=== PATIENT | male | born 1970 | race Two or more races ===

== ENCOUNTER 2024-07-11 11:16 | Inpatient (IN) | payer MEDICAID ==
[~2024-07-11] VITALS: Ht 177.8 cm; Wt 88.4 kg
[2024-07-11] MEDS: HEPARIN DRIP-CARDIAC**PHARMACIST-TO-DOSE IV ONE (11:25)
--- NOTE | 2024-07-11 11:25 | ELECTROCARDIOGRAPH REPORT ---
[facility] Test Date: 2024-07-11 Test Time: 11:22:22 Pat Name: ROXI FOSTER Department: EMERGENCY ROOM Room: [place] [address] Gender: M Subassembly Assembler: RENAN : 1970 Requested By: BERNICE STEVENS Order Number: [id number] Reading MD: Dr. Abhijeet Strong Measurements Intervals [place] Rate: 65 P: 68 MN: 151 QRS: 71 QRSD: 89 T: 77 QT: 426 QTc: 443 Interpretive Statements Sinus rhythm Electronically Signed On 07-17-2024 13:45:[address] Abhijeet Strong Please click the below link to view image of tracing.
[2024-07-11] MEDS: HEPARIN DRIP INITAL BOLUS --- DO NOT GIVE/ORDER MC ONE (12:46)
[2024-07-11] MEDS: MESSAGE TO NURSING IV ONE ×2 (12:47→20:55)
[2024-07-11] MEDS: heparin 25,000 UNIT/250ml bag 250 ML IV PRN (12:48)
[2024-07-11 13:08] LABS: BASOPHILS # (AUTO) 0.1 X10'3 (0-0.2); BASOPHILS % (AUTO) 1.2 % (0-1); EOSINOPHILS # (AUTO) 0.5 X10'3 (0-0.9); EOSINOPHILS % (AUTO) 4.3 % (0-6); HEMATOCRIT 42.7 % (42.0-52.0); HEMOGLOBIN 14.7 g/dl (14.0-17.9); LYMPHOCYTES # (AUTO) 1.8 X10'3 (1.1-4.8); MEAN CORPUSCULAR HEMOGLOBIN 29.7 PG (27.0-31.0); MEAN CORPUSCULAR HGB CONC 34.4 g/dL (33.0-36.5); MEAN CORPUSCULAR VOLUME 86.4 FL (78-98); MEAN PLATELET VOLUME 8.8 FL (7.4-10.4); MONOCYTES # (AUTO) 0.5 X10'3 (0-0.9); MONOCYTES % (AUTO) 4.6 % (2-12); NEUTROPHILS # (AUTO) 7.7 X10'3 (1.8-7.7); NEUTROPHILS % (AUTO) 72.9 % (42-75); PLATELET COUNT 248 X10'3 (140-440); RED BLOOD COUNT 4.95 X10'6 (4.70-6.10); RED CELL DISTRIBUTION WIDTH 12.7 % (11.5-14.5); WHITE BLOOD COUNT 10.6 X10'3 (4.5-11.0)
[2024-07-11 13:21] LABS: APTT 31 SECONDS (22-32); PROTHROMBIN TIME 10.4 SECONDS (9.0-12.0)
--- NOTE | 2024-07-11 14:52 | RADIOLOGY REPORT ---
DI CHEST,SINGLE VIEW, HISTORY: CP COMPARISON: None None TECHNICAL DATA: 1 view of the chest was obtained. FINDINGS: Lines and tubes: None Cardiomediastinal silhouette: normal Pulmonary vasculature: normal Lung expansion: normal Lung airspace: normal Lung interstitium: normal Pleura: normal Pneumothorax: no Bones: Unremarkable Other: no IMPRESSION: No acute intrathoracic abnormality.
[2024-07-11 14:54] LABS: ALANINE AMINOTRANSFERASE 24 U/L (12-78); ALBUMIN 3.4 G/DL (3.4-5.0); ALKALINE PHOSPHATASE 115 IU/L (46-116); ANION GAP 10 (8-16); ASPARTATE AMINO TRANSFERASE 44 U/L (10-37); BILIRUBIN,TOTAL 0.5 MG/DL (0.1-1.0); BLOOD UREA NITROGEN 13 MG/DL (7-18); BUN/CREATININE RATIO 14.3 (10.0-20.0); CALCIUM 9.1 MG/DL (8.5-10.1); CHLORIDE 103 MMOL/L (99-107); CREATININE 0.91 MG/DL (0.60-1.10); GLUCOSE 99 MG/DL (70-104); POTASSIUM 4.6 MMOL/L (3.5-5.1); SODIUM 140 MMOL/L (135-145); TOTAL CARBON DIOXIDE 27.1 MMOL/L (24-32); TOTAL PROTEIN 6.9 G/DL (6.4-8.2); eCRCL 98 ML/MIN; eGFR 87 ML/MIN
[2024-07-11 15:02] LABS: PRO BRAIN NATRIURETIC PEPTIDE 545 PG/ML (0-125)
--- NOTE | 2024-07-11 15:35 | Physician Documentation ---
History of Present Illness ~ Chief Complaint: Chest Pain Stated Complaint: NSTEMI Time Seen by MD: 11:43 Mode of Arrival: EMS HPI 54-year-old male reports ER after transferred from [place] secondary to NSTEMI. Patient began to have chest pain yesterday which radiates to the back. Patient states he was concerned but did not report to the ER. Patient states that the pain he is going to continue today reported to the ER where he had elevated troponins with the 1st initial troponin of 0.547 in his 2nd troponin of point 0.793. Patient is placed on a heparin drip and transferred to [facility]. Patient states it is chest pain is controlled he is currently not complaint of any chest pain. Denies diaphoresis. No other complaints at this time Medication Reconciliation Allergies: Coded Allergies: No Known Allergies (Unverified , 07/11/24) Past Medical History Smoking Status: Current every day smoker Physical Exam Vital Signs: Temperature: 97.5, Source: Oral, Heart Rate: 65, Respiratory Rate: 18, BP: 105/78, Pulse Oximetry: 98, Weight: 90.000 Physical Exam General: Well developed, well nourished, no distress. HEENT: Atraumatic, normal conjunctiva, moist mucous membranes. Neck: Full range of motion, supple. Respiratory: Lungs clear, no respiratory distress. Chest: No accessory muscle use, nontender. Cardiovascular: Regular rate and rhythm. Gastrointestinal: Soft, nontender, nondistended. Bowel sounds present. Extremities: Normal range of motion, nontender, normal capillary refill, no deformity. Back: No midline tenderness, no CVA tenderness. Neurologic: Oriented x4. Distal gross motor and sensory intact all four e xtremities. Moves all 4 extremities spontaneously. Psychiatric: Normal mood and affect. Skin: Normal color, warm and dry. No edema, no ecchymosis Progress Results/Orders Results/Orders Orders - GORDON PALOMARES Hs Troponin I W Calculations (07/11/24 16:50) Chest,Single View (07/11/24 14:35) Cta Aorta Disection (07/11/24 15:35) Drug Screen, Urine (07/11/24 16:27) Page Hospitalist (07/11/24 17:03) Fill Out Med Reconciliation (07/11/24 17:03) Completed Orders - GORDON PALOMARES Cardiac Ptt (07/11/24 18:49) PBNP (07/11/24 13:50) CMP (07/11/24 13:50) Hs Troponin I W Calculations (07/11/24 13:50) Hs Troponin I W Calculations (07/11/24 15:50) Chest,Single View (07/11/24 14:35) Naloxone 2mg/2ml Inj (Narcan 2mg/2ml Inj (07/11/24 16:12) Iohexol 350mg/Ml 100ml (Omnipaque 350mg/ (07/11/24 16:23) Iohexol 350mg/Ml 50ml Inj (Omnipaque 350 (07/11/24 16:23) Urinalysis, Cult If Indicated (07/11/24 16:27) Medications Received in ER Medications (Trade) Dose Ordered Sig/Becca Route PRN Reason Start Time Stop Time Status Last Admin Dose Admin Heparin Sodium/ Dextrose 250 ml @ 10 mls/hr Q25H PRN IV TO MAINTAIN PTT WITHIN RANGE 07/11/24 12:15 07/11/24 12:48 10 MLS/HR Vital Signs 07/11/24 07/11/24 07/11/24 07/11/24 11:37 12:45 13:30 16:26 Temp 97.5 Pulse 66 65 59 Resp 20 17 18 20 B/P (MAP) 115/80 105/78 (87) 120/87 (98) Pulse Ox 100 98 96 O2 Flow Rate 0 Laboratory Tests Test 07/11/24 12:31 07/11/24 12:46 07/11/24 14:07 07/11/24 16:01 Urine Specimen Description Cln catch midstream Urine Color Yellow Urine Clarity Clear Urine pH 6.0 Urine Specific [place] 1.025 Urine Protein Negative Urine Glucose (UA) Negative Urine Ketones Negative Urine Occult Blood Negative Urine Nitrite Negative Urine Bilirubin Negative Urine Urobilinogen 0.2 Urine Leukocyte Esterase Negative Urine Culture Indicated Not ind Volume Urine Centrifuged 10 ml Urine Comment Drug Screen Comment White Blood Count 10.6 Red Blood Count 4.95 Hemoglobin 14.7 Hematocrit 42.7 Mean Corpuscular Volume 86.4 Mean Corpuscular Hemoglobin 29.7 Mean Corpuscular Hemoglobin Concent 34.4 Red Cell Distribution Width 12.7 Platelet Count 248 Mean Platelet Volume 8.8 Neutrophils (%) (Auto) 72.9 Lymphocytes (%) (Auto) 17.0 L Monocytes (%) (Auto) 4.6 Eosinophils (%) (Auto) 4.3 Basophils (%) (Auto) 1.2 H Neutrophils # (Auto) 7.7 Lymphocytes # (Auto) 1.8 Monocytes # (Auto) 0.5 Eosinophils # (Auto) 0.5 Basophils # (Auto) 0.1 CBC Comment Prothrombin Time 10.4 INR International Normalized Ratio 1.0 Activated Partial Thromboplast Time 31 Coagulation Comments Sodium Level 140 Potassium Level 4.6 Chloride Level 103 Carbon Dioxide Level 27.1 Anion Gap 10 Blood Urea Nitrogen 13 Creatinine 0.91 Estimated GFR/1.73 m2 87 BUN/Creatinine Ratio 14.3 Glucose Level 99 Calcium Level 9.1 Total Bilirubin 0.5 Aspartate Amino Transf (AST/SGOT) 44 H Alanine Aminotransferase (ALT/SGPT) 24 Alkaline Phosphatase 115 Troponin I High Sensitivity 3438 *H Pro-B-Type Natriuretic Peptide 545 H Total Protein 6.9 Albumin 3.4 Globulin 3.5 Albumin/Globulin Ratio 1.0 L Chemistry Comments Glucometer 95 Test 07/11/24 16:02 APTT (Heparin Protocol) 37 L Coagulation Comments Troponin I High Sensitivity 5487 *H Troponin I High Sens Percent Delta 59 Troponin I Hi Sens Absolute Change 2048 Heart Score: Heart Score Response (Comments) Value History Highly Suspicious 2 EKG Repolarization Disturb 1 Age 45-64 1 Risk Factors 1 or 2 risk factors 1 Troponin >3 x's Normal limit 2 Total 7 Medical Decision Making Additional info obtained from: old records Findings After detailed discussion and joint medical decision-making, diagnostic and imaging results were discussed with the patient. At this time patient does have elevated troponins and had a repeat EKG which is consistent with an NSTEMI. Patient is currently on his happened drip I did consult Cardiology he is aware of the case. Patient will have a CTA of the chest performed to assess for possible dissection which is unlikely, however based on patient's chief complaint of initial chest pain radiating to the back can not fully excluded so CT of the chest was ordered. Patient will be admitted to for NSTEMI. Patient agrees treatment plan. Differential Dx:Considerations: Include: angina, aortic dissection, chest wall pain, cholelithiasis, CHF, other (ACS) Departure Disposition: 09 ADMITTED INPATIENT Impression: Primary Impression: Myocardial infarction Additional Impression: NSTEMI (non-ST elevated myocardial infarction) Condition: Stable Referrals: NO PRIMARY CARE PROVIDER (PCP) Critical Care Note Total Time (mins): 65 Critical Care Note NSTEMI Signature Scribe Signature: none used Attestation: Scribed for Gordon Palomares by Gordon RAYMOND . 07/11/24 15:34 GORDON PALOMARES July 11, 2024 15:35
[2024-07-11] MEDS: naloxone 2mg/2ml inj IM STA (16:12)
[2024-07-11] MEDS ORDERED: iohexol 350 MG/ML 50ML vial IV ONE (16:23)
[2024-07-11] MEDS ORDERED: iohexol 350MG/ML 100ml bottle IV ONE (16:23)
[2024-07-11 16:50] LABS: BILIRUBIN,URINE NEGATIVE (Neg); CLARITY,URINE CLEAR (Clear); COLOR,URINE YELLOW (Yellow); GLUCOSE, URINE NEGATIVE (Neg); KETONES,URINE NEGATIVE (Neg); LEUKOCYTE ESTERASE ,URINE NEGATIVE (Neg); NITRITES, URINE NEGATIVE (Neg); OCCULT BLOOD,URINE NEGATIVE (Neg); PROTEIN,URINE NEGATIVE (Neg); UROBILINOGEN,URINE 0.2 E.U/dL (0.2-1.0)
[2024-07-11 16:55] LABS: UA COLLECTION TYPE CLN CATCH MIDSTREAM
[2024-07-11 17:56] LABS: URINE AMPHETAMINE SCREEN POSITIVE (Neg); URINE BARBITUATE SCREEN NEGATIVE (Neg); URINE BENZODIAZEPINES SCREEN NEGATIVE (Neg); URINE CANNABINOID SCREEN NEGATIVE (Neg); URINE COCAINE SCREEN NEGATIVE (Neg); URINE METHADONE SCREEN NEGATIVE (Neg); URINE OPIATE SCREEN POSITIVE (Neg); URINE PHENCYCLIDINE SCREEN NEGATIVE (Neg)
--- NOTE | 2024-07-11 18:01 | CONSULTATION REPORT ---
History of Present Illness Providers to CC CC: TANJA BOCANEGRA MD ~ Reason for Admit\Admit Dx: NSTEMI History of Present Illness The patient is a 54-year-old male with a past medical history of tobacco abuse, anxiety, hyperlipidemia, and noncompliance who presents to the emergency department as a transfer from [facility] for a non ST-elevation myocardial infarction. The patient began having chest pain that radiated to the back last evening the pain persisted. The patient felt it may be GI in nature and tried to take medications for presumed heartburn with no improvement/alleviation of his pain. In the morning since the pain did persist, he contacted his daughter who contacted EMS. He was taken to the hospital in [facility] where he is found to have positive troponins of 0.4 that elevated 0.7 and therefore he was transferred to a higher level of care. In our emergency department his initial level of troponins were noted to be 3438 and 2nd set increased to 5387. The patient is currently chest pain-free, he is on a heparin drip. The patient is not very cooperative and is actually rather rude on questioning. He states he has a headache and can not make a decision at this time as he is very hungry. He appears very agitated however, he has no noted diaphoresis, no shortness of breath, vital signs are stable, and he denies any chest pain, pressure, tightness, or heaviness. The patient mentioned that he was previously on multiple medications including buspirone, Xanax, atenolol, and Lipitor but has not taken any medicines for the last one year as he no longer has a family physician and could not get into any Clinic. He denies any known history of diabetes, hypertension, or congestive heart failure. He denies any alcohol or illicit drug use. Allergies: Coded Allergies: No Known Allergies (Unverified , 07/11/24) Past Medical History Medical History Comment 1. Hyperlipidemia 2. Tobacco abuse 3. Noncompliance 4. Possible anxiety/depression Past Surgical History Surgical History Comment No prior known surgeries Past Family History Family History Comment The patient mentions that his sister had a history of open heart surgery. Past Social History Social History Comment The patient lives at home. He admits to smoking approximately half a pack to a pack of cigarettes per day. Denies any alcohol or illicit drug use. However, the patient's tox screen is positive for amphetamines. Physical Exam Last Vital Signs Recorded: Temperature: 97.5, Source: Oral, Heart Rate: 59, Respiratory Rate: 20, BP: 120/87, Pulse Oximetry: 96, Weight: 90.000 General Appearance: alert, other (The patient is noncooperative) EENT: moist mucous membranes Respiratory: lungs clear Cardiovascular: regular rate, rhythm Gastrointestinal: normal palpation, non-tender, bowels sounds present Rectal: deferred Extremities: no edema Neurologic: oriented x4 Review of Systems ROS ROS Comments: A full 12 point review of systems was performed and was negative unless otherwise mentioned in the HPI Results Diagram Lab Result Diagram: 07/11/24 1246 07/11/24 1407 Lab Results Trop HS: 3438 ---> 5387 Other Procedure Comments: EKG: NSR with no acute ischemic changes Assessment/Plan Additional Plan The patient is a 54-year-old male with a history of dyslipidemia, tobacco abuse, anxiety, and noncompliance who presents with a non ST-elevation myocardial infarction. 1. Non ST-elevation myocardial infarction -Would recommend admission to the hospital for further evaluation/assessment. -Ideally recommend coronary angiography and possible percutaneous coronary intervention. This was discussed with the patient, but he was reluctant at this time to make any decision and was rather agitated and stated that he may in fact leave to go to a different hospital because he was not fed. -I tried reasoning with the patient in the emergency room and attempted to try to explain his non ST-elevation myocardial infarction and the treatment plan and his possible options of treatment. -At this point, recommend continuation of the heparin drip, aspirin 81 mg daily, high-intensity statin, and a beta magen. -We will reassess the patient in the morning and hopefully at that time he is more open to discussion in regards to his care. If he so does agree, we will plan on a coronary angiography and possible percutaneous coronary intervention. If he does not agree, then we will plan on medical management with heparin drip for 48 hours followed by medications to treat his underlying NSTEMI. -Obtain an echocardiogram to assess his ejection fraction and wall motion. 2. Anxiety/depression -treatment as per the admitting services 3. Noncompliance -Compliance issues with medications were discussed with the patient. He was advised that if we do proceed with treatment with a coronary angiogram and possible percutaneous coronary intervention, he would need to be compliant with all of his medications. 4. Tobacco abuse 5. ?Amphetamine Use -The patient stated he does not use any illicit drugs, however his tox screen was positive for amphetamines. The patient was seen and evaluated in the emergency room. His care was discussed with the admitting provider, Dr. Bell. We will re-evaluate the patient in the morning in regards to further treatment, if the patient so desires. Please call with any questions or concerns that you may have. JEREMY JAMES MD July 11, 2024 18:01
[2024-07-11] MEDS ORDERED: magnesium hydroxide 30ml (MOM) UD suspension PO PRN (18:10)
[2024-07-11] MEDS ORDERED: mag hydrox/Alum hydrox/simeth 30ml oral suspension PO PRN (18:10)
[2024-07-11] MEDS ORDERED: potassium Cl 20 mEq SR tablet PO PRN ×2 (18:10)
[2024-07-11] MEDS ORDERED: ipratropium/albuterol 3ml nebule NEB PRN (18:10)
[2024-07-11] MEDS ORDERED: ondansetron/PF 4mg/2ml inj IV PRN (18:10)
[2024-07-11] MEDS ORDERED: magnesium sulf-water 4G/100mL 100 ML IV PRN (18:10)
[2024-07-11] MEDS ORDERED: acetaminophen 325mg tablet PO PRN (18:10)
[2024-07-11] MEDS: PERFLUTREN PROTEIN-A MICROSPHR (Optison) 0.22 MG/ML 3ML VIAL IV ONE (18:10)
[2024-07-11] MEDS ORDERED: nitroGLYCERIN 0.4mg SUBLingual tab SL PRN (18:10)
[2024-07-11] MEDS ORDERED: heparin 10,000 units/1 ML INJ IV ONE (18:10)
[2024-07-11] MEDS ORDERED: heparin 25,000 UNIT/250ml bag 250 ML IV PRN (18:10)
[2024-07-11] MEDS ORDERED: heparin 10,000 units/1 ML INJ IV PRN (18:10)
[2024-07-11] MEDS ORDERED: magnesium sulf-water 2g/50mL 50 ML IV PRN (18:10)
[2024-07-11] MEDS ORDERED: potassium Cl 40MEQ/1/2NS 520ml 520 ML IV PRN (18:10)
--- NOTE | 2024-07-11 18:21 | HISTORY AND PHYSICAL ---
History & Physical Providers to CC ~ History of Present Illness Reason for Admit\Complaint: NSTEMI History of Present Illness This is a 54-year-old male who was transferred from [facility] secondary to NSTEMI the patient presented to ER with chest pain that is started yesterday afternoon the patient was playing with his grandson and he developed left-sided chest discomfort that was like a deep ache that has a 5-8 out of 10 which improved with bearing down- the pain did radiate to his left axilla region the patient is mildly short of breath however denied any diaphoresis. On arrival to [place] ED the patient had a initial troponin not high sensitivity of 0.547 and a 2nd troponin was 0.793 the patient is started on heparin drip and was given a beta-magen on aspirin- the patient is chest pain has essentially resolved. Dr. Dotson procurement accountant evaluated the patient as well and was discussing with the patient about cardiac catheterization the patient said he can not make the decisions now since he has not slept and he is hungry in his not eaten. Dr Dotson recommended continuing the heparin drip and will discuss with the patient about a cardiac catheterization in the morning- the patient will be continued on a beta-magen metoprolol 25 mg b.i.d. and atorvastatin 40 mg daily fasting lipid panel is ordered an echocardiogram is ordered the patient is admitted to PCU on a potline monitor. Allergies: Coded Allergies: No Known Allergies (Unverified , 07/11/24) Past Medical History Past Medical History ADD Hyperlipidemia Hypertension Anxiety Past Surgical History Surgical History Comment Left elbow surgery Vasectomy Family History Family History: FH: CVA (cerebrovascular accident) MOTHER Past Social History Social History Comment The patient is smokes a half a pack of cigarettes a day, does not drink alcohol or use illicit drugs. Full code status. ROS ROS Except for positives in the HPI the rest of the 14 point review systems is negative Exam Vitals: Vital Signs Date Time Temp Pulse Resp B/P (MAP) Pulse Ox O2 Delivery O2 Flow Rate FiO2 07/11/24 16:26 59 20 120/87 (98) 96 0 07/11/24 11:37 97.5 General: Gen. No acute distress alert and oriented 4 Lungs clear to ascultation bilaterally, no wheezes rales or rhonchi appreciated Heart normal sinus rhythm no murmurs rubs or clicks noted Abdomen soft nontender bowel sounds are normoactive Lower extremities no clubbing cyanosis, nor edema appreciated bilaterally Diagnostic Data Last Recorded Lab Results: 07/11/24 1246 07/11/24 1407 Diagnostic Data: Laboratory Tests Test 07/11/24 12:46 07/11/24 16:02 Prothrombin Time 10.4 SECONDS (9.0-12.0) INR International Normalized Ratio 1.0 INR Activated Partial Thromboplast Time 31 SECONDS (22-32) APTT (Heparin Protocol) 37 SECONDS (45-60) L Coagulation Comments Counseling Services Smoking & Tobacco Cessation: > 10 Minutes Problems: (1) NSTEMI (non-ST elevated myocardial infarction) Status: Acute Additional Plan # NSTEMI- evaluated by procurement accountant Dr. Dotson On heparin drip Atorvastatin 40 mg now and daily Metoprolol tartrate 25 mg b.i.d. PRN sublingual nitroglycerin Echocardiogram Admitted to PCU on potline monitor # history of hyperlipidemia a fasting lipid panel is ordered for the morning # anxiety- The patient informs me he has and nasty divorce hearings currently in court with his of 25 years # Tobacco abuse-I spent 12 minutes discussing smoking cessation with the patient including the risk of continuing smoke: Lung cancer, stroke, heart attack,, cigarette smoke also leads a foul smell on clothing and fabrics. The expense of smoking cigarettes and how cigarettes have been scientifically engineered to be as addictive as humanly possible. The patient has accepted a 10 mg nicotine patch. # positive UDS for amphetamines- Likely underlining cause of the patient's labile emotions The patient denied drug use We will need to broach the topic tomorrow when the patient is hopefully emotionally more stable The patient is a full code Date of Service: July 11, 2024 Billing Provider: DYLAN ROSA DO Common Visit Codes: 08011-ZTOCFUX INP/OBS CARE (HIGH) Secondary Visit Codes: 33789-OMUAW CHNG SMOKING >10MIN DYLAN ROSA DO July 11, 2024 18:21
[2024-07-11 18:44] LABS: BASOPHILS # (AUTO) 0.1 X10'3 (0-0.2); BASOPHILS % (AUTO) 1.2 % (0-1); EOSINOPHILS # (AUTO) 0.5 X10'3 (0-0.9); EOSINOPHILS % (AUTO) 4.2 % (0-6); HEMATOCRIT 41.9 % (42.0-52.0); HEMOGLOBIN 14.4 g/dl (14.0-17.9); LYMPHOCYTES # (AUTO) 2.3 X10'3 (1.1-4.8); LYMPHOCYTES % (AUTO) 19.5 % (21-51); MEAN CORPUSCULAR HEMOGLOBIN 29.8 PG (27.0-31.0); MEAN CORPUSCULAR HGB CONC 34.4 g/dL (33.0-36.5); MEAN CORPUSCULAR VOLUME 86.6 FL (78-98); MEAN PLATELET VOLUME 9.7 FL (7.4-10.4); MONOCYTES # (AUTO) 0.6 X10'3 (0-0.9); MONOCYTES % (AUTO) 4.6 % (2-12); NEUTROPHILS # (AUTO) 8.5 X10'3 (1.8-7.7); NEUTROPHILS % (AUTO) 70.5 % (42-75); PLATELET COUNT 225 X10'3 (140-440); RED BLOOD COUNT 4.84 X10'6 (4.70-6.10); RED CELL DISTRIBUTION WIDTH 12.9 % (11.5-14.5); WHITE BLOOD COUNT 12.1 X10'3 (4.5-11.0)
[2024-07-11 18:45] LABS: PROTHROMBIN TIME 10.6 SECONDS (9.0-12.0)
[2024-07-11 18:51] LABS: CHOL/HDL RATIO 4.8 (0.00-4.99); CHOLESTEROL 230 MG/DL (0-200); HDL CHOLESTEROL 48 MG/DL (35-60); LDL CHOLESTEROL 154 MG/DL (50-100); TRIGLYCERIDES 206 MG/DL (20-135)
[2024-07-11] MEDS: docusate sod 100mg capsule PO SCH (20:00)
[2024-07-11] MEDS: K and/or MAG REPLACEMENT MC SCH (20:00)
[2024-07-11] MEDS: atorvastatin 20mg tablet PO ONE (20:16)
[2024-07-11] MEDS: nicotine 14mg patch - 24hr TD SCH (20:17)
[2024-07-11] MEDS: metoprolol tartrate 25mg tablet PO SCH (20:21)
[2024-07-11] MEDS: normal saline 1000ml 1,000 ML IV SCH (20:26)
[2024-07-11] MEDS ORDERED: NO HOME MEDS (20:36)
[2024-07-11 21:30] VITALS: BP 133/75; PULSE 69; RESP 20; TEMP 97.6; O2SAT 95
[2024-07-11] MEDS: heparin 10,000 units/1 ML INJ IV PRN (21:33)
[2024-07-11 22:00] VITALS: RESP 19; O2SAT 98
[2024-07-12] VITALS (10 sets, daily range): BP systolic 105–122; BP diastolic 69–84; PULSE 62–81; RESP 14–26; TEMP 97.5–98.6; O2SAT 96–98
[2024-07-12] MEDS: MESSAGE TO NURSING IV ONE ×3 (04:49→19:25)
[2024-07-12 07:45] LABS: BASOPHILS # (AUTO) 0.1 X10'3 (0-0.2); BASOPHILS % (AUTO) 0.7 % (0-1); EOSINOPHILS # (AUTO) 0.4 X10'3 (0-0.9); EOSINOPHILS % (AUTO) 3.8 % (0-6); HEMATOCRIT 42.2 % (42.0-52.0); HEMOGLOBIN 14.8 g/dl (14.0-17.9); LYMPHOCYTES # (AUTO) 1.7 X10'3 (1.1-4.8); LYMPHOCYTES % (AUTO) 17.5 % (21-51); MEAN CORPUSCULAR VOLUME 85.9 FL (78-98); MEAN PLATELET VOLUME 9.4 FL (7.4-10.4); MONOCYTES # (AUTO) 0.5 X10'3 (0-0.9); MONOCYTES % (AUTO) 5.4 % (2-12); NEUTROPHILS % (AUTO) 72.6 % (42-75); PLATELET COUNT 177 X10'3 (140-440); RED BLOOD COUNT 4.91 X10'6 (4.70-6.10); RED CELL DISTRIBUTION WIDTH 12.6 % (11.5-14.5); WHITE BLOOD COUNT 9.7 X10'3 (4.5-11.0)
[2024-07-12] MEDS ORDERED: atorvastatin 20mg tablet PO SCH (08:00)
[2024-07-12] MEDS: atorvastatin 20mg tablet PO SCH (08:11)
[2024-07-12 08:34] LABS: ALANINE AMINOTRANSFERASE 27 U/L (12-78); ALBUMIN 3.1 G/DL (3.4-5.0); ALBUMIN/GLOBULIN RATIO 0.9 (1.1-1.5); ALKALINE PHOSPHATASE 122 IU/L (46-116); ANION GAP 9 (8-16); ASPARTATE AMINO TRANSFERASE 63 U/L (10-37); BILIRUBIN,TOTAL 0.7 MG/DL (0.1-1.0); BLOOD UREA NITROGEN 12 MG/DL (7-18); BUN/CREATININE RATIO 12.9 (10.0-20.0); CALCIUM 8.5 MG/DL (8.5-10.1); CHLORIDE 101 MMOL/L (99-107); CREATININE 0.93 MG/DL (0.60-1.10); GLUCOSE 96 MG/DL (70-104); MAGNESIUM 1.9 MG/DL (1.5-2.4); SODIUM 138 MMOL/L (135-145); TOTAL CARBON DIOXIDE 27.8 MMOL/L (24-32); TOTAL PROTEIN 6.7 G/DL (6.4-8.2); eCRCL 96 ML/MIN; eGFR 85 ML/MIN
[2024-07-12] MEDS ORDERED: iohexol 350MG/ML 100ml bottle IV ONE (10:34)
[2024-07-12] MEDS ORDERED: fentaNYL/PF 50MCG/1 ML 2ML syringe ONE (10:34)
[2024-07-12] MEDS ORDERED: LIDOcaine 1% (10mg/ml) 2ml vial ONE ×2 (10:34→11:08)
[2024-07-12] MEDS ORDERED: midazolam 1 mg/ML 2ml injection ONE (10:34)
[2024-07-12] MEDS ORDERED: heparin 1,000unit/ml 10ml vial 10 ML ONE (10:34)
[2024-07-12] MEDS ORDERED: nitroGLYCERIN 500mcg/5mL D5W 5 ML IV ONE (10:34)
[2024-07-12] MEDS ORDERED: verapamil 2.5 mg/ml inj IV ONE (10:34)
[2024-07-12] MEDS ORDERED: iohexol 350 MG/ML 50ML vial IV ONE (11:14)
[2024-07-12] MEDS ORDERED: heparin 25,000 UNIT/250ml bag 250 ML IV ONE (11:26)
--- NOTE | 2024-07-12 11:48 | CARDIAC CATH REPORT ---
Post Cath Report Providers to CC CC: TANJA BOCANEGRA MD; MARLO JAMES MD ~ Date of Procedure: July 12, 2024 Pre-Procedure Diagnosis: NSTEMI History: AMI, Current smoker <1 yr, Hyperlipidemia CCS Anginal Class: IV NYFA Functional Class: II Procedure Preformed: Left Heart Cath Post Procedure DX Same?: No (Triple Vessel CAD) Findings Findings: Procedure(s): 1. Left Heart Cath, Selective Right and Left Coronary Angiography 2. Conscious sedation monitoring for 30 minutes Pre-Cardiac Catheterization Diagnosis: NSTEMI Post-Cardiac Catheterization Diagnosis: Severe triple-vessel coronary artery disease Human Resources Mgr(s): Marlo James MD ([facility]) Indication: Mr. Dillon is a 54 year old male with a past medical history significant for history of dyslipidemia, tobacco abuse, anxiety, and noncompliance who presents with a non ST-elevation myocardial infarction. The patient is being brought to the cardiac lab manager for further evaluation of their coronary anatomy with a left heart cath and possible percutaneous coronary intervention. Procedure Details: Informed consent was obtained. An Thiago's test was performed pre-procedure and the right radial artery was deemed adequate for arterial access. The right wrist was preped and draped in usual manner. The area was infiltrated with 2% lidocaine. Right radial artery was entered with a terumo sureflo needle and a 6F sheath was inserted. Heparin was injected in the sheath. Selective right and left coronary angiograms were performed with JR5 and a JL 3.5 catheter, respectively. The JR5 catheter was used to cross the aortic valve and obtain a LVEDP, which was elevated at 29 mmHg. At the completion of the procedure, all the wires and catheters were removed. The radial sheath was removed and a trans-radial band was used to achieve hemostasis. The patient was given conscious sedation and monitored for a total of 30 minutes. Catheters Used: 1. 6 Ghanaian JL3.5 2. 6 Ghanaian JR5 All catheters were exchanged over the wire. CORONARY ANGIOGRAM: Left Main: Large caliber vessel that is long in length and has noted moderate distal tapering of 30-40%. Distally, the left main bifurcates into an LAD and a left circumflex coronary artery. Left Anterior Descending: Moderate caliber branching vessel that has noted moderate (50%) proximal disease followed by aneurysmal dilatation in the midportion followed immediately by severe (80%) disease in the midportion just after the 1st septal engineering technician of the LAD. Distally, the LAD wraps around the apex. The septals of the LAD supply left to right collaterals to the distal RCA. Left Circumflex: Non dominant vessel that has noted moderate (40%) proximal and moderate (50%) mid disease. The left circumflex coronary artery supplies two major obtuse marginal branches. The 1st obtuse marginal branch has noted moderate (60%) ostial disease followed by [id number] (70%) mid disease. The second obtuse marginal branch has noted severe/critical (90%) disease in the proximal portion of the vessel. Right Coronary Artery: Dominant vessel that has noted moderate two severe (70%) proximal disease followed by a CANNERY WORKER in the midportion of the vessel with noted bridging right to right collaterals. Distally the RCA has noted diffuse disease. Left Ventricular Angiography: Not performed Hemodynamics: Please refer to lab manager flow sheet. LVEDP: 29 mmHg. Valve Disease: No gradient upon pullback across the aortic valve Complications: None Impression: 1. Right dominant system 2. Severe triple-vessel disease as described above. 3. Elevated LVEDP of 29 mm of mercury consistent with heart failure. Echocardiogram is pending to assess if this is heart failure with preserved ejection fraction versus heart failure with reduced ejection fraction. 4. Conscious sedation monitoring for 30 minutes. Recommendations: -CT surgery consult has been placed for surgical revascularization. -Transfer to the floor. -Resume heparin drip for a total of 48 hours -Continue with aspirin 81 mg daily and a high-intensity statin. -Given his episode of a pause noted on telemetry last night, while the patient was asleep, recommend holding his metoprolol/ -Obtain an echocardiogram to assess his ejection fraction and wall motion -Aggressive lifestyle and risk factor modifications were stressed to the patient, particularly smoking cessation. At the termination of procedure radial sheath removed and trans-radial band applied with good hemostasis Dominance: Right Moderate Sedation: Yes Complications: None Estimated Blood Loss: less than 5 cc Treatment Plan: CABG Condition on leaving Butcher Assistant: Stable MARLO JAMSE MD July 12, 2024 11:48
--- NOTE | 2024-07-12 12:03 | PROGRESS NOTE ---
Progress Note Cardiology Providers to CC CC: TANJA BOCANEGRA MD; JEREMY JAMES MD ~ Subjective Subjective The patient was seen and evaluated this morning. He underwent an uncomplicated coronary angiogram via right radial access. The coronary angiography did reveal severe triple-vessel disease. The patient was very emotional and tearful in regards to his diagnosis. Overnight, the patient did have a noted 5.2 sec pause while he was sleeping. Objective Vitals Vital Sign - Last 24 Hours 07/11/24 07/11/24 07/11/24 07/11/24 12:45 13:30 15:00 16:01 Pulse 65 60 64 Resp 17 18 17 21 B/P (MAP) 105/78 (87) 129/95 (106) 136/85 (102) Pulse Ox 98 100 O2 Flow Rate 0 07/11/24 07/11/24 07/11/24 07/11/24 16:26 17:01 19:00 20:21 Pulse 59 64 67 Resp 20 24 18 B/P (MAP) 120/87 (98) 133/78 (96) Pulse Ox 96 98 O2 Flow Rate 0 0 07/11/24 07/11/24 07/11/24 07/11/24 20:27 21:30 21:39 22:00 Temp 97.6 Pulse 68 69 67 63 Resp 18 20 18 B/P (MAP) 114/70 (85) 133/75 (94) 132/82 (99) Pulse Ox 100 95 99 O2 Delivery Room Air 07/11/24 07/12/24 07/12/24 07/12/24 22:00 02:00 06:00 07:00 Temp 98.0 98.6 Pulse 66 40 62 Resp 19 19 15 B/P (MAP) 122/84 (97) 106/74 (85) Pulse Ox 98 98 96 O2 Delivery Room Air Room Air Room Air O2 Flow Rate 0.0 07/12/24 07/12/24 08:00 08:13 Pulse 62 Resp 15 Pulse Ox 96 O2 Delivery Room Air Result Diagram: 07/12/24 0707/12/24 07 Objective Gen: A&Ox3 Chest: Clear CVS: S1 and S2 Ext: No edema Right Radial Access: TR band in place Coagulation Studies Laboratory Tests Test 07/11/24 12:46 07/11/24 16:02 5/26/25 10:39 Activated Partial Thromboplast Time 31 SECONDS (22-32) Prothrombin Time 10.6 SECONDS (9.0-12.0) INR International Normalized Ratio 1.0 INR APTT (Heparin Protocol) 42 SECONDS (45-60) L Coagulation Comments Other Results Trop HS: 3438 ---> 5387 --> 6496 --> 7382 Coronary Angiography (07/12/24): Left Main: Large caliber vessel that is long in length and has noted moderate distal tapering of 30-40%. Distally, the left main bifurcates into an LAD and a left circumflex coronary artery. Left Anterior Descending: Moderate caliber branching vessel that has noted moderate (50%) proximal disease followed by aneurysmal dilatation in the midportion followed immediately by severe (80%) disease in the midportion just after the 1st septal station jailer of the LAD. Distally, the LAD wraps around the apex. The septals of the LAD supply left to right collaterals to the distal RCA. Left Circumflex: Non dominant vessel that has noted moderate (40%) proximal and moderate (50%) mid disease. The left circumflex coronary artery supplies two major obtuse marginal branches. The 1st obtuse marginal branch has noted moderate (60%) ostial disease followed by [id number] (70%) mid disease. The second obtuse marginal branch has noted severe/critical (90%) disease in the proximal portion of the vessel. Right Coronary Artery: Dominant vessel that has noted moderate two severe (70%) proximal disease followed by a LEGAL WORD PROCESSOR in the midportion of the vessel with noted bridging right to right collaterals. Distally the RCA has noted diffuse disease. Hemodynamics: Please refer to supervisor dental laboratory flow sheet. LVEDP: 29 mmHg. Echo (07/12/24): pending to be done Problem\Assessment\Plan Additional Plan The patient is a 54-year-old male with a history of dyslipidemia, tobacco abuse, anxiety, and noncompliance who presented with a non ST-elevation myocardial infarction. Coronary angiography was performed today (07/12/2024) and did reveal severe triple-vessel coronary artery disease. 1. Non ST-elevation myocardial infarction -status post coronary angiography that revealed severe triple-vessel disease -CT surgery has been consulted for evaluation in regards to surgical revascularization -obtain an echocardiogram to assess his ejection fraction and wall motion -would recommend holding metoprolol given his noted pause that happened while he was asleep last night -continue aspirin 81 mg and a high-intensity statin -continue with the heparin drip for a total of 48 hours 2. Triple-vessel coronary artery disease -please refer to above 3. Anxiety/depression -treatment as per the admitting services 4. Noncompliance 5. Tobacco abuse 6. ?Amphetamine Use -The patient stated he does not use any illicit drugs, however his tox screen was positive for amphetamines. Findings were discussed with the patient in detail. Findings were also relayed to the patient's admitting hospitalist, Dr. Bell. Per CT surgeon was also informed in regards to consultation/evaluation for surgical revascularization. JEREMY JAMES MD July 12, 2024 12:03
[2024-07-12] MEDS ORDERED: ondansetron/PF 4mg/2ml inj IV PRN (12:20)
[2024-07-12] MEDS ORDERED: HYDROcodone/acetaminophen 5mg/325mg tablet PO PRN (12:20)
[2024-07-12] MEDS ORDERED: HYDROcodone/acetaminophen 10/325mg tab PO PRN (12:20)
[2024-07-12] MEDS ORDERED: normal saline 1000ml 1,000 ML IV SCH (12:20)
[2024-07-12] MEDS ORDERED: proCHLORperazine 10 MG/2 ml inj IV PRN (12:25)
--- NOTE | 2024-07-12 13:24 | CONSULTATION REPORT ---
Consult Providers to CC ~ History of Present Illness Reason for Admit\Complaint: NSTEMI History of Present Illness Mr. Dillon is a 54 year old male with known history of hypercholesterolemia- who was admitted with increasing episodes of chest pain and shortness of breath. Upon admission he was noted to have troponin elevation. He underwent a LHC today which demonstrated multi-vessel CAD including high grade lesions of the proximal LAD, Circ, OM1, OM2, and near total occlusion of the RCA. He denies syncope, dizziness- and is now pain free. Allergies: Coded Allergies: No Known Allergies (Unverified , 07/11/24) Home Medications Home Medications Active Reported No Home Medications (Home Med List) Each Past Medical History Past Medical History Hypercholesterolemia Past Surgical History Surgical History Comment left elbow surgery Family History Family History: FH: CVA (cerebrovascular accident) MOTHER (breast cancer hx) Past Social History Social History Comment , 1/2 PPD tobacco. Exam Vitals: Vital Signs Date Time Temp Pulse Resp B/P (MAP) Pulse Ox O2 Delivery O2 Flow Rate FiO2 07/12/24 08:13 62 07/12/24 08:00 15 96 Room Air 07/12/24 07:00 98.6 106/74 (85) 07/11/24 22:00 0.0 General: NAD, cooperative HEENT: PERRLA, poor dentition Neck: supple, no JVD Chest: Clear Cardiovascular: RRR, no murmurs Abdomen: soft, ND Extremities: warm, no edema, brisk cap refill Central Nervous System: no deficits Musculoskeletal: full ROM, no deformities Skin: no lesions Diagnostic Data Last Recorded Lab Results: 07/12/24 0702 07/12/24 0702 Diagnostic Data: Laboratory Tests Test 07/11/24 12:46 07/11/24 16:02 07/12/24 10:39 Activated Partial Thromboplast Time 31 SECONDS (22-32) Prothrombin Time 10.6 SECONDS (9.0-12.0) INR International Normalized Ratio 1.0 INR APTT (Heparin Protocol) 42 SECONDS (45-60) L Coagulation Comments 2D echo pending Vein mapping pending Additional Plan 54 year old male with multi-vessel CAD. We discussed treatment options along with risks and benefits. He understands and would like to proceed with surgical revascularization during this admission. LUKE MEJIA MD July 12, 2024 13:24
[2024-07-12] MEDS ORDERED: vancomycin/NS 1 GM ADD-VANTAGE 250 ML IV ONE (15:00)
[2024-07-12] MEDS: MESSAGE TO NURSING PO ONE ×2 (15:00)
--- NOTE | 2024-07-12 15:28 | CARDIOLOGY REPORT ---
APPROVED REPORT EXAM: Comprehensive 2D, Doppler, and color-flow Echocardiogram. Patient Location: 3012 A Blood Pressure: 106/74 mmHg Heart Rate: 62 bpm Rhythm: Sinus Indications MO / Myocardial Infarct S/P Cath Procedure Severe Triple-vessel CAD S/P CATH [facility] (07/12/2024) Product Delivery Specialist: Milvia Dotson MD (consult, cath) Previous echo: None 2D Dimensions RVDd 3.4 cm LA Diam3.6 cm RA Minor4.4 cmLVOT Diameter 2.21 (1.8-2.4cm) Ao Asc Diam.3.31 cmIVC 14.63 mm CO 3.0 L/min M-Mode Dimensions RVDd 2.96 (2.1-3.2cm) Left Atrium(MM) 3.96 (2.5-4.0cm) IVSd 0.98 (0.7-1.1cm) LVDd 4.59 (4.0-5.6cm) Aortic Root 3.13 (2.2-3.7cm) PWd 1.08 (0.7-1.1cm) Aortic Cusp Exc 1.87 (1.5-2.0cm) IVSs 1.36 cm MV EPSS 0.9 (<0.5cm) LVDs 3.42 (2.0-3.8cm) FS (%) 26 % PWs 1.41 cm ESV(Teich) 48.2 ml LVEF(%) 50 (>50%) Aortic Valve AoV Peak John. 118.5 cm/s AoV VTI 24.9 cm AO Peak GR. 5.6 mmHg AO Mean GR. 3 mmHg LVOT VTI 20.06 cm LVOT Peak John. 89.4 cm/s YOMAIRA(VTI)/BSA 3.08 cm2/m2 YOMAIRA (VTI) 3.08 cm2 Mitral Valve MV E Velocity 46.5 cm/s MV Peak Gr. 1 mmHg MV DECEL TIME 236 ms MV A Velocity 48.5 cm/s MV Mean Gr. 0 mmHg MV PHT 84 ms E/A Ratio 1.0 MVA (PHT) 2.62 cm2 MV VMax58.9 cm/sMV VMean31.9 cm/s MVA VTI3.54 cm2MV VTI21.7 cm TDI Lateral E' P. V10.54 cm/s Medial E' P. V 8.81 cm/s E/Lateral E' 4.4 E/Medial E' 5.3 Tricuspid Valve TR P. Velocity 230 cm/s RAP ESTIMATE 10 mmHg TR Peak Gr. 21 mmHg RVSP 31 mmHg LEFT VENTRICLE Normal LV size and wall thickness. Overall systolic function appears to be mildly reduced. Overall LV EF is 50-55%. RIGHT VENTRICLE RV is mildly dilated in size with normal function. Estimated PA systolic pressure is 31 mmHg. ATRIA The left atrium size is normal. The right atrium size is normal. AORTIC VALVE Probable trileaflet AV appears sclerotic without stenosis or insufficiency. MITRAL VALVE Mild MV annular thickening without stenosis. Trace regurgitation. TRICUSPID VALVE TV appears structurally normal with trace regurgitation. PULMONIC VALVE Normal PV without stenosis, physiologic insufficiency. GREAT VESSELS The aortic root is normal in size. The ascending aorta is normal in size. IVC is normal in size and c ollapses less than 50% with inspiration. PERICARDIUM Normal pericardium. No pericardial effusion seen. Other Information Study Quality: Adequate Conclusion Normal LV size and wall thickness. Overall systolic function appears to be mildly reduced. Overall L VEF is 50-55%. RV is mildly dilated in size with normal function. Estimated PA systolic pressure is 31 mmHg. The left atrium size is normal. The right atrium size is normal. Probable trileaflet AV appears sclerotic without stenosis or insufficiency. Mild MV annular thickening without stenosis. Trace regurgitation. TV appears structurally normal with trace regurgitation. Normal pericardium. No pericardial effusion seen.
--- NOTE | 2024-07-12 16:00 | RADIOLOGY REPORT ---
DI CHEST,TWO VIEWS CLINICAL HISTORY: PRE CARDIAC SURGERY COMPARISON: None TECHNIQUE: Frontal and lateral view of the chest was obtained FINDINGS: Lines and Tubes: None Lungs: No focal consolidation. Pleura: No effusion. No pneumothorax. Cardiomediastinal contours: Unremarkable Bones: No acute osseous abnormality. Osteoarthritic changes thoracic spine with calcification of the anterior longitudinal ligament. IMPRESSION: 1. No acute cardiopulmonary disease.
--- NOTE | 2024-07-12 16:55 | ELECTROCARDIOGRAPH REPORT ---
[facility] Test Date: 2024-07-12 Test Time: 16:54:08 Pat Name: ROXI FOSTER Department: [facility] 3S Patient ID: [facility]-[id number] Room: [place] [address] Gender: M Supplier Specialist: JOSEFA : 1970 Requested By: BHUPENDRA MOSES Order Number: [id number] Reading MD: Dr. CAYDEN Rodriguez Measurements Intervals [place] Rate: 68 P: 75 MI: 143 QRS: 49 QRSD: 91 T: -20 QT: 423 QTc: 450 Interpretive Statements Sinus rhythm Borderline T abnormalities, inferior leads Electronically Signed On 07-13-2024 17:35:[address] CAYDEN Rodriguez Please click the below link to view image of tracing.
[2024-07-12 17:09] LABS: ABG BASE EXCESS -0.2 mmol/L (-2.0-3.0); ABG HCO3 23.5 mmol/L (21.0-28.0); ABG OXYGEN SATURATION 96.3 % (94.0-98.0); ABG PCO2 (T) 35.8 mmHg (35.0-48.0); ABG PH (T) 7.435 (7.350-7.450); ABG PO2 (T) 83.1 mmHg (83.0-108.0); ALLEN'S TEST POSITIVE; FCOHb 1.2 % (0.5-1.5); FHHb 3.6 % (0.0-5.0); FMetHb 0.3 % (0.0-1.5); FO2Hb 94.9 % (94.0-98.0); PATIENT TEMPERATURE 37.2; TOTAL HEMOGLOBIN 14.6 G/dl (13.5-17.5)
--- NOTE | 2024-07-12 17:41 | VASCULAR REPORT ---
EXAM: US Duplex Bilateral Extracranial Arteries CLINICAL INDICATION: Reason TECHNIQUE: Real-time duplex ultrasound scan of the extracranial arteries integrating B-mode two-dime nsional vascular structure, Doppler spectral analysis and color flow Doppler imaging. COMPARISON: None FINDINGS: RIGHT COMMON CAROTID ARTERY: Unremarkable. No occlusion or significant stenosis on color flow and spectral Doppler imaging. Peak systolic velocity in the right common carotid artery (CCA) is 84 cm/s . RIGHT INTERNAL CAROTID ARTERY: Unremarkable. No occlusion or significant stenosis on color flow an d spectral Doppler imaging. Peak systolic velocity in the right internal carotid artery (ICA) is 79 cm/s. RIGHT EXTERNAL CAROTID ARTERY: Unremarkable. No occlusion or significant stenosis on color flow an d spectral Doppler imaging. RIGHT VERTEBRAL ARTERY: Unremarkable. Antegrade flow. RIGHT ICA/CCA RATIO: Unremarkable. The ICA/CCA peak systolic velocity ratio is 0.94 on the right. LEFT COMMON CAROTID ARTERY: Unremarkable. No occlusion or significant stenosis on color flow and s pectral Doppler imaging. Peak systolic velocity in the left common carotid artery (CCA) is 87 cm/s. LEFT INTERNAL CAROTID ARTERY: Unremarkable. No occlusion or significant stenosis on color flow and spectral Doppler imaging. Peak systolic velocity in the left internal carotid artery (ICA) is 75 cm /s. LEFT EXTERNAL CAROTID ARTERY: Unremarkable. No occlusion or significant stenosis on color flow and spectral Doppler imaging. LEFT VERTEBRAL ARTERY: Unremarkable. Antegrade flow. LEFT ICA/CCA RATIO: Unremarkable. The ICA/CCA peak systolic velocity ratio is 0.86 on the left. LYMPH NODES: Unremarkable. No lymphadenopathy. OTHER FINDINGS: . . CAROTID STENOSIS REFERENCE USING IAC CRITERIA: Mild - <50% stenosis. ICA PSV is less than 180 cm/s and plaque or intimal thickening is visible. Moderate - 50-69% stenosis. ICA PSV is 180 to 230 cm/s and plaque is visible. Severe - 70-94% stenosis. ICA PSV is more than 230 cm/s and visible plaque with lumen narrowing is s een. Near occlusion - 95-99% stenosis. ICA PSV is variable and significant plaque with luminal narrowing is seen. Occluded - 100% stenosis. No flow identified. IMPRESSION: No acute findings in the arteries of the neck.
--- NOTE | 2024-07-12 17:47 | VASCULAR REPORT ---
Lower Extremity Duplex Doppler Reflux Study Date: 07/12/2024 04:21 PM Clinical History: Preop for CABG vein mapping Comparison: None Images submitted: 13 Findings: Duplex Doppler evaluation including color Doppler and spectral/pulsed waveform analysis of the deep a nd superficial veins of the lower extremities was performed for evaluation of reflux using tilt table technique and Valsalva and augmentation maneuvers. Reflux is defined as lasting greater than one second for the purposes of this examination. RIGHT: Common femoral vein - no reflux seen Deep femoral vein - no reflux seen Femoral vein - no reflux seen Popliteal vein - no reflux seen Great saphenous vein above knee at thigh levels - no reflux seen, measuring up to 3.4 mm Great saphenous vein below knee at calf levels - no reflux seen, measuring up to 2.1 mm Small saphenous vein - no reflux seen, measurement not provided Saphenofemoral junction - no reflux seen Referral Clerk vein - none seen LEFT: Common femoral vein - no reflux seen Deep femoral vein - no reflux seen Femoral vein - no reflux seen Popliteal vein - no reflux seen Great saphenous vein above knee at thigh levels - no reflux seen, measuring up to 3.5mm Great saphenous vein below knee at calf levels - no reflux seen, measuring up to 2.1mm Small saphenous vein - no reflux seen, measurement not provided Saphenofemoral junction - no reflux seen Referral Clerk vein - none seen IMPRESSION: 1. No evidence for lower extremity venous reflux. 2. The measurement saphenous vein as provided above.
[2024-07-12] MEDS: albuterol 2.5 MG/3 ML nebule NEB PRN (17:48)
--- NOTE | 2024-07-12 21:24 | PROGRESS NOTE ---
Daily Progress Note Providers to CC ~ Antibiotic Timeout Antibiotic Ordered?: No Subjective The patient had a coronary angiogram and was found to have for high-grade lesions in the LAD circ OM1 and OM2 as well as a near total occlusion of the RCA- the patient will be going for a CABG with Dr. Peraza Cardiothoracic surgeon Objective Vital Signs Date Time Temp Pulse Resp B/P (MAP) Pulse Ox O2 Delivery O2 Flow Rate FiO2 07/12/24 18:30 72 07/12/24 17:52 20 Room Air 0.0 07/12/24 17:50 98 21 07/12/24 15:00 98.1 105/74 (84) Result Diagram: 07/12/24 0702 07/12/24 0702 Gen. No acute distress alert and oriented 4 Lungs clear to ascultation bilaterally, no wheezes rales or rhonchi appreciated Heart normal sinus rhythm no murmurs rubs or clicks noted Abdomen soft nontender bowel sounds are normoactive Lower extremities no clubbing cyanosis, nor edema appreciated bilaterally Coagulation Studies Laboratory Tests Test 07/11/24 12:46 07/11/24 16:02 07/12/24 17:48 Activated Partial Thromboplast Time 31 SECONDS (22-32) Prothrombin Time 10.6 SECONDS (9.0-12.0) INR International Normalized Ratio 1.0 INR APTT (Heparin Protocol) 37 SECONDS (45-60) L Coagulation Comments Problem\Assessment\Plan Problems/Diagnosis: (1) NSTEMI (non-ST elevated myocardial infarction) # NSTEMI- evaluated by interactive media marketing director Dr. Dotson On heparin drip Atorvastatin 40 mg now and daily Metoprolol tartrate 25 mg b.i.d. PRN sublingual nitroglycerin Echocardiogram Admitted to PCU on city council member 07/12 status post coronary angiogram with the following findings: Left Main: Large caliber vessel that is long in length and has noted moderate distal tapering of 30-40%. Distally, the left main bifurcates into an LAD and a left circumflex coronary artery. Left Anterior Descending: Moderate caliber branching vessel that has noted moderate (50%) proximal disease followed by aneurysmal dilatation in the midportion followed immediately by severe (80%) disease in the midportion just after the 1st septal hedge fund manager of the LAD. Distally, the LAD wraps around the apex. The septals of the LAD supply left to right collaterals to the distal RCA. Left Circumflex: Non dominant vessel that has noted moderate (40%) proximal and moderate (50%) mid disease. The left circumflex coronary artery supplies two major obtuse marginal branches. The 1st obtuse marginal branch has noted moderate (60%) ostial disease followed by [id number] (70%) mid disease. The second obtuse marginal branch has noted severe/critical (90%) disease in the proximal portion of the vessel. Right Coronary Artery: Dominant vessel that has noted moderate two severe (70%) proximal disease followed by a DEVELOPMENT LEAD in the midportion of the vessel with noted bridging right to right collaterals. Distally the RCA has noted diffuse disease. Cardiothoracic surgeon Dr. Peraza evaluated the patient and will take the patient for a multivessel CABG # history of hyperlipidemia The patient has a triglyceride level 206 with a total cholesterol of 230 and a LDL of 154 and an HDL of 48 80 mg of atorvastatin and started # anxiety- The patient informs me he has and nasty divorce hearings currently in court with his of 25 years # Tobacco abuse-I spent 12 minutes discussing smoking cessation with the patient including the risk of continuing smoke: Lung cancer, stroke, heart attack,, cigarette smoke also leads a foul smell on clothing and fabrics. The expense of smoking cigarettes and how cigarettes have been scientifically engineered to be as addictive as humanly possible. The patient has accepted a 10 mg nicotine patch. # positive UDS for amphetamines- supervisor special services will be consulted Date of Service: July 12, 2024 Billing Provider: DYLAN ROSA DO Common Visit Codes: [id number] INP/OBS CARE(HIGH) DYLAN ROSA DO July 12, 2024 21:24
[2024-07-13] VITALS (26 sets, daily range): BP systolic 73–149; BP diastolic 49–91; PULSE 42–98; RESP 11–29; TEMP 97.4–97.6; O2SAT 93–99
[2024-07-13 02:29] LABS: BASOPHILS # (AUTO) 0.1 X10'3 (0-0.2); BASOPHILS % (AUTO) 0.8 % (0-1); EOSINOPHILS # (AUTO) 0.3 X10'3 (0-0.9); EOSINOPHILS % (AUTO) 3.8 % (0-6); HEMATOCRIT 40.5 % (42.0-52.0); HEMOGLOBIN 14.1 g/dl (14.0-17.9); LYMPHOCYTES # (AUTO) 1.8 X10'3 (1.1-4.8); LYMPHOCYTES % (AUTO) 19.9 % (21-51); MEAN CORPUSCULAR HEMOGLOBIN 29.7 PG (27.0-31.0); MEAN CORPUSCULAR HGB CONC 34.7 g/dL (33.0-36.5); MEAN CORPUSCULAR VOLUME 85.6 FL (78-98); MEAN PLATELET VOLUME 8.6 FL (7.4-10.4); MONOCYTES # (AUTO) 0.5 X10'3 (0-0.9); MONOCYTES % (AUTO) 5.7 % (2-12); NEUTROPHILS # (AUTO) 6.2 X10'3 (1.8-7.7); NEUTROPHILS % (AUTO) 69.8 % (42-75); PLATELET COUNT 160 X10'3 (140-440); RED BLOOD COUNT 4.74 X10'6 (4.70-6.10); RED CELL DISTRIBUTION WIDTH 12.5 % (11.5-14.5); WHITE BLOOD COUNT 8.9 X10'3 (4.5-11.0)
[2024-07-13 02:43] LABS: ALANINE AMINOTRANSFERASE 22 U/L (12-78); ALBUMIN/GLOBULIN RATIO 0.9 (1.1-1.5); ALKALINE PHOSPHATASE 114 IU/L (46-116); ANION GAP 6 (8-16); ASPARTATE AMINO TRANSFERASE 34 U/L (10-37); BILIRUBIN,TOTAL 0.4 MG/DL (0.1-1.0); BLOOD UREA NITROGEN 14 MG/DL (7-18); CALCIUM 8.1 MG/DL (8.5-10.1); CHLORIDE 104 MMOL/L (99-107); CREATININE 1.08 MG/DL (0.60-1.10); GLUCOSE 106 MG/DL (70-104); POTASSIUM 3.9 MMOL/L (3.5-5.1); SODIUM 138 MMOL/L (135-145); TOTAL CARBON DIOXIDE 27.6 MMOL/L (24-32); TOTAL PROTEIN 6.4 G/DL (6.4-8.2); eCRCL 83 ML/MIN; eGFR 72 ML/MIN
[2024-07-13] MEDS: MESSAGE TO NURSING IV ONE (02:55)
[2024-07-13] MEDS ORDERED: ceFAZolin 1000mg inj ONE (06:59)
[2024-07-13] MEDS ORDERED: heparin 10,000 units/1 ML INJ ONE (06:59)
[2024-07-13] MEDS ORDERED: BUPIVAcaine 2.5mg/ml inj 50ml vial (contains preservative) ONE (06:59)
[2024-07-13] MEDS ORDERED: gelatin sponge, absorbable (Gelfoam 100) sponge TP ONE (07:00)
[2024-07-13] MEDS ORDERED: MIDAZolam 1mg/ml 10ml vial ONE (08:06)
[2024-07-13] MEDS ORDERED: SUfentanil 50mcg/ml 1ml amp IV ONE (08:08)
[2024-07-13] MEDS: ceFAZolin 2gm/dext,iso 50mL 50 ML IV ONE (08:15)
[2024-07-13] MEDS: Insulin Reg/NS 100units/100mL 100 ML IV SCH ×2 (08:15→18:24)
[2024-07-13] MEDS: MESSAGE TO NURSING PO ONE ×3 (08:17→10:00)
[2024-07-13] MEDS: famotidine 20mg tablet PO ONE (08:17)
[2024-07-13] MEDS: MESSAGE TO PHARMACY IJ ONE (08:18)
[2024-07-13] MEDS ORDERED: amiodarone in dextrose, iso-osm 150mg/100ml bag IV ONE (08:30)
[2024-07-13] MEDS ORDERED: midazolam 100mg in NS 100ml 100 ML IV SCH ×2 (08:35→08:43)
[2024-07-13] MEDS ORDERED: FENTANYL-0.9 % NACL/PF 100 ML IV SCH (08:35)
[2024-07-13] MEDS ORDERED: fentaNYL/PF 50MCG/1 ML 2ML syringe IV PRN (08:35)
[2024-07-13] MEDS: midazolam 1 mg/ML 2ml injection IV ONE ×2 (08:35→08:38)
[2024-07-13] MEDS: vancomycin/NS 1 GM ADD-VANTAGE 250 ML IV ONE (08:38)
[2024-07-13] MEDS: mupirocin 2% nasal ointment 1gm UD NS ONE (08:40)
[2024-07-13] MEDS: gabapentin 400mg capsule PO ONE (08:40)
[2024-07-13] MEDS ORDERED: albumin (Human) 5% 250ml 250 ML IV ONE ×2 (09:15→15:03)
[2024-07-13 09:18] LABS: ABG BASE EXCESS -1.5 mmol/L (-2.0-3.0); ABG HCO3 23.7 mmol/L (21.0-28.0); ABG OXYGEN SATURATION 99.2 % (94.0-98.0); ABG PCO2 41.5 mmHg (35.0-48.0); ABG PH 7.374 (7.350-7.450); CL (ABG) 105 mmol/L (98-107); FCOHb 0.3 % (0.5-1.5); FHHb 0.8 % (0.0-5.0); FMetHb 0.1 % (0.0-1.5); FO2Hb 98.8 % (94.0-98.0); GLUCOSE (ABG) 101 mg/dl (65-95); IONIZED CA (ABG) 1.04 mmol/L (1.15-1.33); K (ABG) 3.4 mmol/L (3.40-4.50); TOTAL HEMOGLOBIN 13.1 G/dl (13.5-17.5)
[2024-07-13] MEDS ORDERED: rocuronium 10mg/ml inj IV ONE ×6 (09:24→14:26)
[2024-07-13] MEDS: BUPIVAcaine/PF 2.5 mg/ml (0.25%) 30ml vial IJ ONE (09:24)
[2024-07-13] MEDS ORDERED: phenylephrine 10mg/ml inj. ONE (09:25)
[2024-07-13] MEDS ORDERED: LIDOcaine 2% (20mg/ml) 5ml vial ONE (09:25)
[2024-07-13] MEDS ORDERED: propofol inj 20 ML IV ONE (09:25)
[2024-07-13] MEDS ORDERED: 0.9 % SODIUM CHLORIDE 10 ML VIAL ONE (09:25)
[2024-07-13] MEDS ORDERED: insulin glargine (Lantus) pen - multi-dose SQ PRN ×2 (09:30→15:15)
[2024-07-13] MEDS ORDERED: dextrose 50%-water 50ml dispensing syringe IV PRN ×2 (09:30→15:15)
[2024-07-13 11:08] LABS: ACT @ 1.70 U 270 SEC (193-297); ACT @ 2.84 U 353 SEC (260-420); BASELINE ACT 141 SEC (101-148); PATIENT WEIGHT 90.0k KG
[2024-07-13 12:04] LABS: ABG BASE EXCESS -1.1 mmol/L (-2.0-3.0); ABG HCO3 25.4 mmol/L (21.0-28.0); ABG OXYGEN SATURATION 98.9 % (94.0-98.0); ABG PCO2 50.7 mmHg (35.0-48.0); ABG PH 7.317 (7.350-7.450); CL (ABG) 103 mmol/L (98-107); FCOHb 0.2 % (0.5-1.5); FHHb 1.1 % (0.0-5.0); FO2Hb 98.7 % (94.0-98.0); GLUCOSE (ABG) 143 mg/dl (65-95); IONIZED CA (ABG) 1.02 mmol/L (1.15-1.33); K (ABG) 5.3 mmol/L (3.40-4.50); TOTAL HEMOGLOBIN 10.1 G/dl (13.5-17.5)
[2024-07-13 12:31] LABS: ABG BASE EXCESS -1.3 mmol/L (-2.0-3.0); ABG OXYGEN SATURATION 99.3 % (94.0-98.0); ABG PH 7.325 (7.350-7.450); CL (ABG) 104 mmol/L (98-107); FCOHb 0.3 % (0.5-1.5); FHHb 0.7 % (0.0-5.0); FMetHb 0.1 % (0.0-1.5); FO2Hb 98.9 % (94.0-98.0); GLUCOSE (ABG) 173 mg/dl (65-95); IONIZED CA (ABG) 1.02 mmol/L (1.15-1.33); K (ABG) 5.1 mmol/L (3.40-4.50); TOTAL HEMOGLOBIN 10.7 G/dl (13.5-17.5)
[2024-07-13 13:07] LABS: ABG HCO3 24.3 mmol/L (21.0-28.0); ABG OXYGEN SATURATION 99.2 % (94.0-98.0); ABG PCO2 48.2 mmHg (35.0-48.0); ABG PH 7.321 (7.350-7.450); CL (ABG) 104 mmol/L (98-107); FCOHb 0.3 % (0.5-1.5); FHHb 0.8 % (0.0-5.0); FMetHb 0.3 % (0.0-1.5); FO2Hb 98.6 % (94.0-98.0); GLUCOSE (ABG) 168 mg/dl (65-95); IONIZED CA (ABG) 1.05 mmol/L (1.15-1.33); K (ABG) 4.9 mmol/L (3.40-4.50); TOTAL HEMOGLOBIN 11.1 G/dl (13.5-17.5)
--- NOTE | 2024-07-13 13:23 | PROGRESS NOTE ---
Progress Note ID Providers to CC ~ Progress Note Progress Note: The patient was taken for a CABG this morning prior to being seen and will be followed exclusively by the Cardiothoracic surgery team for the remainder of the hospitalization. Hospitalist service from sign off. The hospitalist services available for any further management if needed which would require the Cardiothoracic surgeon to contact the hospitalist team for a c onsult. DYLAN ROSA DO July 13, 2024 13:22
[2024-07-13 13:33] LABS: ABG HCO3 22.7 mmol/L (21.0-28.0); ABG OXYGEN SATURATION 99.1 % (94.0-98.0); CL (ABG) 105 mmol/L (98-107); FCOHb 0.3 % (0.5-1.5); FHHb 0.9 % (0.0-5.0); FMetHb 0.3 % (0.0-1.5); FO2Hb 98.5 % (94.0-98.0); GLUCOSE (ABG) 153 mg/dl (65-95); IONIZED CA (ABG) 1.05 mmol/L (1.15-1.33); K (ABG) 4.9 mmol/L (3.40-4.50)
[2024-07-13] MEDS ORDERED: calcium chloride 100 MG/1 ML inj IV ONE (14:03)
[2024-07-13 14:23] LABS: ACTIVATED CLOTTING TIME 127 SEC (101-148)
[2024-07-13] MEDS ORDERED: ondansetron/PF 4mg/2ml inj ONE (14:37)
[2024-07-13] MEDS ORDERED: dexamethasone sod phosphate 4mg/ml inj. ONE (14:37)
--- NOTE | 2024-07-13 15:13 | POSTOPERATIVE RECORDS ---
Postoperative Records Providers to CC ~ Date of Procedure: July 13, 2024 Problems: (1) NSTEMI (non-ST elevated myocardial infarction) (2) CAD (coronary artery disease) Post-Operative Diagnosis SAME as PRE-Op Procedure Performed CABG x 4, LINDA. R EVH Surgeon: Sosa Peraza Breading Machine Tender Ivy Trejo Anesthesiologist: Axel Corodva Type of Anesthesia: General Findings: 0 Complications None. Estimated Blood Loss: See record. Specimen Removed: 0 Description of Procedure: FRANCO to LAD, SVG to PDA. SVG to OM1, OM2 sequentially. Counts reported as correct: Yes BHUPENDRA MOSES July 13, 2024 15:13
[2024-07-13] MEDS ORDERED: Neutra Phos packet PO PRN (15:15)
[2024-07-13] MEDS ORDERED: potassium Cl 20 mEq SR tablet PO PRN (15:15)
[2024-07-13] MEDS: sodium chloride 0.45% 1,000 ML IV SCH (15:15)
[2024-07-13] MEDS ORDERED: potassium CL 10mEq/100ml bag 100 ML IV PRN (15:15)
[2024-07-13] MEDS ORDERED: magnesium sulf-water 4G/100mL 100 ML IV PRN (15:15)
[2024-07-13] MEDS ORDERED: potassium Cl 40MEQ/270ML bag 250 ML IV PRN (15:15)
[2024-07-13] MEDS ORDERED: normal saline 250ml IV soln 250 ML IV PRN (15:15)
[2024-07-13] MEDS ORDERED: potassium Cl 40MEQ/1/2NS 520ml 520 ML IV PRN (15:15)
[2024-07-13] MEDS ORDERED: bisacodyl 10mg suppository rectal RC PRN (15:15)
[2024-07-13] MEDS ORDERED: sodium phosphate inj. 15 MMOL in dextrose 5%-water 250 ML IV PRN (15:15)
[2024-07-13] MEDS ORDERED: sodium phosphate inj. 30 MMOL in dextrose 5%-water 250 ML IV PRN (15:15)
[2024-07-13] MEDS ORDERED: DOPamine 400mg/D5W 250ml 250 ML IV PRN (15:15)
[2024-07-13] MEDS ORDERED: mineral oil 133ml enema RC PRN (15:15)
[2024-07-13] MEDS ORDERED: magnesium hydroxide 30ml (MOM) UD suspension PO PRN (15:15)
[2024-07-13] MEDS ORDERED: nitroGLYCERIN-Tridil 50MG/D5W 250 ML IV PRN (15:15)
[2024-07-13] MEDS ORDERED: acetaminophen 325mg tablet PO PRN ×2 (15:15)
--- NOTE | 2024-07-13 15:32 | ELECTROCARDIOGRAPH REPORT ---
[facility] Test Date: 2024-07-13 Test Time: 15:29:36 Pat Name: ROXI FOSTER Department: [facility] 2S Patient ID: [facility]-[id number] Room: [facility] 2011 A Gender: M Fish Flipper: JOSEFA : 1970 Requested By: BHUPENDRA MOSES Order Number: [id number] Reading MD: Dr. CAYDEN Rodriguez Measurements Intervals [place] Rate: 85 P: 73 MO: 141 QRS: 45 QRSD: 97 T: 53 QT: 385 QTc: 458 Interpretive Statements Sinus rhythm Probable inferior infarct, recent Electronically Signed On 07-13-2024 17:36:[address] CAYDEN Rodriguez Please click the below link to view image of tracing.
[2024-07-13 15:44] LABS: ABG BASE EXCESS -4.5 mmol/L (-2.0-3.0); ABG HCO3 24.2 mmol/L (21.0-28.0); ABG OXYGEN SATURATION 97.2 % (94.0-98.0); ABG PH (T) 7.231 (7.350-7.450); ABG PO2 (T) 102.7 mmHg (83.0-108.0); FCOHb 0.8 % (0.5-1.5); FHHb 2.8 % (0.0-5.0); FO2Hb 96.4 % (94.0-98.0); MODE VENT - SIMV/VC; PATIENT TEMPERATURE 35.8; PEEP 5 cm H2O; RESPIRATORY RATE 12 b/min; TIDAL VOLUME 600 mL; TOTAL HEMOGLOBIN 12.9 G/dl (13.5-17.5)
--- NOTE | 2024-07-13 15:45 | RADIOLOGY REPORT ---
CHEST RADIOGRAPH Indication: POST OP Technique: Single frontal view of the chest was obtained Comparison: DI CHEST,SINGLE VIEW on DOS: 07/11/24 FINDINGS: Lines and Tubes: Support lines including endotracheal tube nasogastric tube and right internal jugula r CVP catheter to be in satisfactory position. There is a a [place] catheter with tip in the pulmon lakshmi outflow tract. Lungs: No focal consolidation. There is mild elevation of the right hemidiaphragm Pleura: No effusion. No pneumothorax. Cardiomediastinal contours: Cardiac silhouette is within the limits of normal with median sternotomy. Bones: No acute osseous abnormality. IMPRESSION: 1. Recent postop with median sternotomy. 2. Support lines are in satisfactory position. 3. No evidence of airspace consolidation or pulmonary venous congestion.
[2024-07-13 16:15] LABS: ALANINE AMINOTRANSFERASE 20 U/L (12-78); ALBUMIN 3.3 G/DL (3.4-5.0); ALBUMIN/GLOBULIN RATIO 1.4 (1.1-1.5); ALKALINE PHOSPHATASE 82 IU/L (46-116); ANION GAP 6 (8-16); ASPARTATE AMINO TRANSFERASE 48 U/L (10-37); BILIRUBIN,TOTAL 0.8 MG/DL (0.1-1.0); BLOOD UREA NITROGEN 14 MG/DL (7-18); BUN/CREATININE RATIO 11.7 (10.0-20.0); CALCIUM 8.9 MG/DL (8.5-10.1); CHLORIDE 110 MMOL/L (99-107); GLUCOSE 104 MG/DL (70-104); MAGNESIUM 3.9 MG/DL (1.5-2.4); PHOSPHORUS 5.1 MG/DL (2.3-4.5); SODIUM 144 MMOL/L (135-145); TOTAL PROTEIN 5.7 G/DL (6.4-8.2); eCRCL 74 ML/MIN; eGFR 64 ML/MIN
[2024-07-13 16:27] LABS: POTASSIUM 4.4 MMOL/L (3.5-5.1)
[2024-07-13 16:54] LABS: APTT 26 SECONDS (22-32); FIBRINOGEN 287 MG/DL (177-424); INR 1.2 INR; PROTHROMBIN TIME 11.7 SECONDS (9.0-12.0)
--- NOTE | 2024-07-13 17:07 | OPERATIVE REPORT ---
DATE OF SURGERY: 07/13/2024 DICTATING PHYSICIAN: Carlos Eduardo Peraza MD PREOPERATIVE DIAGNOSES: * Coronary artery disease. * Hypercholesterolemia. POSTOPERATIVE DIAGNOSES: * Coronary artery disease. * Hypercholesterolemia. OPERATIONS PERFORMED: * Coronary artery bypass grafting with FRANCO to LAD, saphenous vein graft to RPDA, and sequential saphenous vein grafting to OM1 and OM2. * Endoscopic vein harvesting. SURGEON: Carlos Eduardo Peraza MD NEONATAL INTENSIVE CARE NURSE: Christian Blanc MD SECOND SECURITY BUSINESS ANALYST: Juan Arevalo ANESTHESIOLOGIST: Dr. Cordova ANESTHETIC: General plus local. DRAINS: A 32-[place] right-angle chest tube into the left pleural space, 24-[place] Alex into the pericardial, and a 28-[place] straight chest tube into the anterior mediastinum and right pleural space. COMPLICATIONS: None. DESCRIPTION OF PROCEDURE: The patient was taken to the operating room and placed on the table in supine position. After anesthesia was induced, the legs, groins, and chest were prepped and draped in the usual sterile fashion. Next, a timeout was called and the patient was correctly identified by the surgeon and the OR staff. Next, a midline chest incision was made and carried out down to the sternum. Simultaneous endoscopic vein harvesting commenced. The sternum was divided in the midline and hemostasis was obtained along the sternal edges. The CARRI was identified and taken down on the pedicle. Prior to distal division, the full heparin dose was given. The pedicle was divided distally. The SAUNDRA was injected with 3 mL papaverine and wrapped in a papaverine-soaked silk sponge. Next, the pericardium was opened and tacked with stay sutures. Once we confirmed the ACT was in the appropriate range, we proceeded with cannulation. Cannulation was in the standard fashion with the aortic cannula in the distal ascending aorta and a dual-stage venous cannula in the right atrium and inferior vena cava. We commenced with cardiopulmonary bypass and cooling. A root vent was placed as well as a retrograde cardioplegia catheter into the coronary sinus. Once the target temperature was reached, a cross-clamp was applied and the patient was administered both antegrade and retrograde cardioplegia. We noted good diastolic arrest after approximately 200 mL. Topical ice was used throughout the case. Retrograde and antegrade cardioplegia were used as well as cardioplegia down the vein every 15-20 minutes throughout the case. First, attention was turned to the right coronary circulation. I identified the RPDA proximal in its course. I opened it, then proceeded to perform an end-to-side anastomosis with a 7-0 Prolene in a running fashion with the first vein segment. Next, attention was turned to the obtuse marginal branches. I then performed sequential vein grafting to both with OM2 configuration as an end-to-side in a T-like configuration. The sequential vein graft was performed in a [id number] manner in a alba-like fashion with a 7-0 Prolene in a running fashion. Next, attention was turned to the LAD. I identified the LAD just distal to its mid segment. It was opened longitudinally. The SAUNDRA was fashioned to the appropriate length. I then proceeded to perform an end-to-side anastomosis of the FRANCO to the LAD with a 7-0 Prolene in running fashion. The pedicle was tacked to the epicardium with interrupted 5-0 Prolene sutures. At this point, we began warming. I used a 4-0 punch to make openings in the mid ascending aorta. Both proximal anastomoses were performed with a 6-0 Prolene in a running fashion. Prior to completion of the second proximal anastomosis, we began a hotshot using warm blood in a retrograde fashion. We noted spontaneous return of activity. While venting the aorta, the cross-clamp was removed. Both vein grafts were de-aired. The retrograde cardioplegia catheter was removed. Initial survey of the surgical sites revealed good hemostasis. Once the normothermia was reached, we began the process of weaning cardiopulmonary bypass and we were able to separate with minimal inotropic support. The venous cannula was removed as was the root vent. We were able to return an appropriate amount of volume through the aortic cannula and it too was then removed. We did note some discordance between the cuff pressure and the radial line. The intraoperative transesophageal echocardiogram showed the heart may have been under filled, but there were no wall motion abnormalities. I then placed a right femoral arterial line to get better and more accurate blood pressures. This was done as we were closing the chest. The chest tubes were placed into the positions as described above. A pacing wire was placed on the anterior surface of the right ventricle. I was able to demonstrate brisk diastolic flow in all 3 grafts. I then approximated the sternal edges with wires followed by a 3-layer chest wall closure. I used 0.25% Marcaine at the chest tube sites as well as the distal end of the sternal incision. All of the instruments were accounted for at the end of the case. The patient tolerated the procedure well and was taken to the ICU in stable condition. Carlos Eduardo Peraza MD TID: [id number] RECEIPT: [id number] ANAT/TIMOTEO
[2024-07-13 17:12] LABS: BASOPHILS # (AUTO) 0.1 X10'3 (0-0.2); BASOPHILS % (AUTO) 0.3 % (0-1); EOSINOPHILS # (AUTO) 0.1 X10'3 (0-0.9); EOSINOPHILS % (AUTO) 0.3 % (0-6); HEMATOCRIT 35.9 % (42.0-52.0); HEMOGLOBIN 12.3 g/dl (14.0-17.9); LYMPHOCYTES # (AUTO) 1.3 X10'3 (1.1-4.8); LYMPHOCYTES % (AUTO) 5.5 % (21-51); MEAN CORPUSCULAR HEMOGLOBIN 29.7 PG (27.0-31.0); MEAN CORPUSCULAR HGB CONC 34.2 g/dL (33.0-36.5); MEAN CORPUSCULAR VOLUME 86.8 FL (78-98); MONOCYTES # (AUTO) 0.7 X10'3 (0-0.9); MONOCYTES % (AUTO) 2.8 % (2-12); NEUTROPHILS # (AUTO) 21.5 X10'3 (1.8-7.7); NEUTROPHILS % (AUTO) 91.1 % (42-75); PLATELET COUNT 138 X10'3 (140-440); RED BLOOD COUNT 4.14 X10'6 (4.70-6.10); RED CELL DISTRIBUTION WIDTH 12.4 % (11.5-14.5); WHITE BLOOD COUNT 23.6 X10'3 (4.5-11.0)
[2024-07-13] MEDS: ceFAZolin/D5W- 1GM premix 50 ML IV SCH (17:20)
[2024-07-13] MEDS: niCARDipine-NS 40mg/200ml IVPB 200 ML IV PRN (17:31)
[2024-07-13] MEDS ORDERED: albuterol 2.5 MG/3 ML nebule NEB PRN (17:55)
[2024-07-13 18:04] LABS: TOTAL CELLS COUNTED 100
[2024-07-13 18:05] LABS: PLATELET ESTIMATE DECREASED
--- NOTE | 2024-07-13 18:14 | CARDIOLOGY REPORT ---
APPROVED REPORT EXAM: Limited intraoperative transesophageal 2D and color flow Doppler echocardiogram. Patient Location: CV[facility] Blood Pressure: 77/29 mmHg Heart Rate: 62 bpm Rhythm: SINUS Indications POST-OPERATIVE HYPOTENSION LINDA probe passed by: Bev Cordova MD Dip Dyer: Milvia Dotson MD Previous echo: 07/13/24 [facility] (EF 55-60%, trace MR, trace TR) LEFT VENTRICLE Normal LV size and wall thickness. Overall systolic function is normal. Basal inferior wall appears h ypokinetic. LVEF is 55-60%. RIGHT VENTRICLE RV size and function appear normal. ATRIA LA appears at least mildly dilated. AORTIC VALVE Trileaflet AV appears mildly sclerotic without stenosis or insufficiency. MITRAL VALVE Mild MV annular calcification without stenosis. Trace regurgitation. TRICUSPID VALVE TV appears structurally normal with trace regurgitation. PULMONIC VALVE Normal PV without stenosis, physiologic insufficiency. [place]-Jonathan catheter in the right heart across t he pulmonic valve. PERICARDIUM Normal pericardium. No effusion. CONCLUSION Normal LV size and wall thickness. Overall systolic function is normal. Basal inferior wall appears h ypokinetic. LVEF is 55-60%. RV size and function appear normal. LA appears at least mildly dilated. M ild MV annular calcification without stenosis. Trace regurgitation. TV appears structurally normal wi th trace regurgitation. Normal pericardium. No effusion. Conclusion Normal LV size and wall thickness. Overall systolic function is normal. Basal inferior wall appears h ypokinetic. LVEF is 55-60%. RV size and function appear normal. LA appears at least mildly dilated. Mild MV annular calcification without stenosis. Trace regurgitation. TV appears structurally normal with trace regurgitation. Normal pericardium. No effusion.
[2024-07-13] MEDS: methylPREDNISolone sod succ 125mg/2ml vial IV SCH (18:18)
[2024-07-13] MEDS: dexmedetomidin/NS 400mcg/100ml 100 ML IV SCH (18:18)
[2024-07-13] MEDS: morphine 4 MG/ML inj SYRINge IV PRN (18:18)
--- NOTE | 2024-07-13 18:18 | CARDIOLOGY REPORT ---
APPROVED REPORT EXAM: Intraoperative transesophageal 2D and color flow Doppler echocardiogram. Study contains pre- a nd post-op images. Patient Location: CVOR Blood Pressure: 80/48 mmHg Heart Rate: 69 bpm Rhythm: SINUS Indications CORONARY ARTERY DISEASE CABG X4 LINDA probe is passed by: Bev Cordova MD Gate Watchman: Milvia Dotson MD (consult) Previous echo: 07/12/24 [facility] (EF 50-55%, trace MR, trace TR) LEFT VENTRICLE PRE: Normal LV size and wall thickness. Overall systolic function is normal. Basal inferior hypokines is. LVEF is 55-60%. POST: Unchanged. RIGHT VENTRICLE PRE: RV size and function appear normal. POST: Unchanged. ATRIA PRE: LA appears at least mildly dilated. RA appears normal in size. Left atrial appendage is visualiz ed in multiple planes and appears normal without debris. Pulmonary vein identified and isolated by 2D and color Doppler. POST: Unchanged. AORTIC VALVE PRE: Trileaflet AV appears mildly sclerotic without stenosis or insufficiency. POST: Unchanged. MITRAL VALVE PRE: Mild MV annular calcification without stenosis. Trace regurgitation. POST: Unchanged. TRICUSPID VALVE PRE: TV appears structurally normal with trace regurgitation. POST: Unchanged. PULMONIC VALVE PRE: Normal PV without stenosis, physiologic insufficiency. [place]-Jonathan catheter in the right heart acr oss the pulmonic valve. POST: Unchanged. [place] PRE: Aortic root is normal in size. Ascending aorta is normal in size. POST: Unchanged. PERICARDIUM PRE: Normal pericardium. No effusion. POST: Unchanged. CONCLUSION PRE: Normal LV size and wall thickness. Overall systolic function is normal. Basal inferior hypokines is. LVEF is 55-60%. POST: Unchanged. PRE: RV size and function appear normal. POST: Unchanged. PRE: L A appears at least mildly dilated. RA appears normal in size. Left atrial appendage is visualized in multiple planes and appears normal without debris. Pulmonary vein identified and isolated by 2D and c olor Doppler. POST: Unchanged. PRE: Trileaflet AV appears mildly sclerotic without stenosis or insuff iciency. POST: Unchanged. PRE: Mild MV annular calcification without stenosis. Trace regurgitation. P OST: Unchanged. PRE: TV appears structurally normal with trace regurgitation. POST: Unchanged. PRE: N ormal PV without stenosis, physiologic insufficiency. [place]-Jonathan catheter in the right heart across th e pulmonic valve. POST: Unchanged. PRE: Normal pericardium. No effusion. POST: Unchanged. Conclusion PRE: Normal LV size and wall thickness. Overall systolic function is normal. Basal inferior hypokines is. LVEF is 55-60%. POST: Unchanged. PRE: RV size and function appear normal. POST: Unchanged. PRE: LA appears at least mildly dilated. RA appears normal in size. Left atrial appendage is visualiz ed in multiple planes and appears normal without debris. Pulmonary vein identified and isolated by 2D and color Doppler. POST: Unchanged. PRE: Trileaflet AV appears mildly sclerotic without stenosis or insufficiency. POST: Unchanged. PRE: Mild MV annular calcification without stenosis. Trace regurgitation. POST: Unchanged. PRE: TV appears structurally normal with trace regurgitation. POST: Unchanged. PRE: Normal PV without stenosis, physiologic insufficiency. [place]-Jonathan catheter in the right heart acr oss the pulmonic valve. POST: Unchanged. PRE: Normal pericardium. No effusion. POST: Unchanged.
[2024-07-13] MEDS: albumin (Human) 5% 250ml 250 ML IV PRN (18:19)
[2024-07-13] MEDS: potassium Cl 20mEq/100mL bag 100 ML IV PRN (18:39)
[2024-07-13] MEDS: ipratropium/albuterol 3ml nebule NEB SCH (19:05)
[2024-07-13] MEDS: vancomycin/NS 1 GM ADD-VANTAGE 250 ML IV SCH (20:10)
[2024-07-13] MEDS: atorvastatin 10mg tablet PO SCH (20:10)
[2024-07-13] MEDS: sennosides/docusate sodium tablet PO SCH (20:10)
[2024-07-13] MEDS: gabapentin 300mg capsule PO SCH (20:11)
[2024-07-13] MEDS: mupirocin 2% nasal ointment 1gm UD NS SCH (20:11)
[2024-07-13] MEDS: ondansetron/PF 4mg/2ml inj IV PRN (20:11)
[2024-07-13] MEDS: ringers solution, lacted 1,000 ML IV ONE (20:11)
[2024-07-13] MEDS: ringers solution, lacted 1,000 ML IV SCH (20:12)
[2024-07-13] MEDS: NORepinephrine 8mg/ 250ml NS 250 ML IV PRN (21:19)
[2024-07-13 21:26] LABS: ABG BASE EXCESS -2.6 mmol/L (-2.0-3.0); ABG HCO3 20.9 mmol/L (21.0-28.0); ABG OXYGEN SATURATION 97.7 % (94.0-98.0); ABG PH (T) 7.434 (7.350-7.450); FCOHb 0.2 % (0.5-1.5); FHHb 2.3 % (0.0-5.0); FMetHb 0.3 % (0.0-1.5); FO2Hb 97.2 % (94.0-98.0); MODE VENT - CPAP; PATIENT TEMPERATURE 37.2; PEEP 5 cm H2O; TOTAL HEMOGLOBIN 10.4 G/dl (13.5-17.5)
[2024-07-13 22:15] LABS: BASOPHILS % (AUTO) 0.1 % (0-1); EOSINOPHILS % (AUTO) 0.1 % (0-6); HEMATOCRIT 28.3 % (42.0-52.0); HEMOGLOBIN 9.7 g/dl (14.0-17.9); LYMPHOCYTES # (AUTO) 0.3 X10'3 (1.1-4.8); LYMPHOCYTES % (AUTO) 2.2 % (21-51); MEAN CORPUSCULAR HEMOGLOBIN 29.7 PG (27.0-31.0); MEAN CORPUSCULAR HGB CONC 34.5 g/dL (33.0-36.5); MEAN PLATELET VOLUME 9.1 FL (7.4-10.4); MONOCYTES # (AUTO) 0.3 X10'3 (0-0.9); MONOCYTES % (AUTO) 2.3 % (2-12); NEUTROPHILS # (AUTO) 13.3 X10'3 (1.8-7.7); NEUTROPHILS % (AUTO) 95.3 % (42-75); PLATELET COUNT 136 X10'3 (140-440); RED BLOOD COUNT 3.29 X10'6 (4.70-6.10); RED CELL DISTRIBUTION WIDTH 12.6 % (11.5-14.5)
[2024-07-13 22:30] LABS: ALBUMIN 3.7 G/DL (3.4-5.0); ANION GAP 7 (8-16); BLOOD UREA NITROGEN 14 MG/DL (7-18); BUN/CREATININE RATIO 12.7 (10.0-20.0); CHLORIDE 109 MMOL/L (99-107); GLUCOSE 98 MG/DL (70-104); MAGNESIUM 2.7 MG/DL (1.5-2.4); SODIUM 142 MMOL/L (135-145); eCRCL 81 ML/MIN; eGFR 70 ML/MIN
[2024-07-13] MEDS: metoclopramide 5 mg/ml inj IV PRN (22:33)
[2024-07-13] MEDS: HYDROcodone/acetaminophen 10/325mg tab PO PRN (22:34)
[2024-07-14] VITALS (27 sets, daily range): BP systolic 87–129; BP diastolic 50–92; PULSE 66–99; RESP 13–33; O2SAT 90–99
[2024-07-14] MEDS: HYDROcodone/acetaminophen 10/325mg tab PO PRN (02:08)
[2024-07-14 02:21] LABS: BASOPHILS # (AUTO) 0.1 X10'3 (0-0.2); BASOPHILS % (AUTO) 0.4 % (0-1); EOSINOPHILS % (AUTO) 0 % (0-6); HEMATOCRIT 27.1 % (42.0-52.0); HEMOGLOBIN 9.4 g/dl (14.0-17.9); LYMPHOCYTES # (AUTO) 0.4 X10'3 (1.1-4.8); LYMPHOCYTES % (AUTO) 2.6 % (21-51); MEAN CORPUSCULAR HEMOGLOBIN 29.7 PG (27.0-31.0); MEAN CORPUSCULAR HGB CONC 34.7 g/dL (33.0-36.5); MEAN CORPUSCULAR VOLUME 85.7 FL (78-98); MEAN PLATELET VOLUME 9.2 FL (7.4-10.4); MONOCYTES # (AUTO) 0.4 X10'3 (0-0.9); MONOCYTES % (AUTO) 2.7 % (2-12); NEUTROPHILS # (AUTO) 14.3 X10'3 (1.8-7.7); NEUTROPHILS % (AUTO) 94.3 % (42-75); PLATELET COUNT 117 X10'3 (140-440); RED BLOOD COUNT 3.16 X10'6 (4.70-6.10); RED CELL DISTRIBUTION WIDTH 12.6 % (11.5-14.5); WHITE BLOOD COUNT 15.1 X10'3 (4.5-11.0)
[2024-07-14 02:23] LABS: APTT 28 SECONDS (22-32); INR 1.1 INR
[2024-07-14 02:26] LABS: POTASSIUM 4.6 MMOL/L (3.5-5.1)
[2024-07-14 02:40] LABS: ALANINE AMINOTRANSFERASE 24 U/L (12-78); ALBUMIN 3.5 G/DL (3.4-5.0); ALBUMIN/GLOBULIN RATIO 1.6 (1.1-1.5); ALKALINE PHOSPHATASE 67 IU/L (46-116); ASPARTATE AMINO TRANSFERASE 64 U/L (10-37); BILIRUBIN,TOTAL 0.8 MG/DL (0.1-1.0); BLOOD UREA NITROGEN 14 MG/DL (7-18); BUN/CREATININE RATIO 14.6 (10.0-20.0); CALCIUM 8.3 MG/DL (8.5-10.1); CREATININE 0.96 MG/DL (0.60-1.10); GLUCOSE 125 MG/DL (70-104); MAGNESIUM 2.5 MG/DL (1.5-2.4); PHOSPHORUS 4.6 MG/DL (2.3-4.5); TOTAL PROTEIN 5.7 G/DL (6.4-8.2); eCRCL 93 ML/MIN; eGFR 82 ML/MIN
[2024-07-14 02:50] LABS: ANION GAP 7 (8-16); CHLORIDE 108 MMOL/L (99-107); SODIUM 141 MMOL/L (135-145)
--- NOTE | 2024-07-14 05:41 | RADIOLOGY REPORT ---
EXAM: XR Chest, 1 View CLINICAL INDICATION: POST OP TECHNIQUE: Frontal view of the chest. COMPARISON: DI CHEST,SINGLE VIEW on DOS: 07/13/24, DI CHEST,SINGLE VIEW on DOS: 07/11/24 FINDINGS: LUNGS AND PLEURAL SPACES: Mild congestive heart failure. No consolidation. No pneumothorax. HEART: Unremarkable. No cardiomegaly. MEDIASTINUM: See below. BONES/JOINTS: Unremarkable. No acute fracture. TUBES, LINES AND DEVICES: Right IJ swan-Jonathan catheter with distal tip in the mid mediastinum. Mult iple wires overlie the chest, limiting its evaluation. OTHER FINDINGS: . IMPRESSION: Mild congestive heart failure.
--- NOTE | 2024-07-14 07:45 | PROGRESS NOTE ---
Progress Note CV Providers to CC ~ Antibiotics Ordered?: No Subjective Subjective S/P CABG x 4 POD # 1. Awake, alert. Does not open his eyes when communicating but this was the case preop. Denies nausea and says he is hungry. Objective Vitals Vital Signs Date Time Temp Pulse Resp B/P (MAP) Pulse Ox O2 Delivery O2 Flow Rate FiO2 07/14/24 05:59 99.3 72 18 102/58 (72) 95 Nasal Cannula 3.0 91/53 (70) 07/13/24 21:13 40 Lab Results: 07/14/24 0200 07/14/24 0200 Objective Lungs - diminished at bases Heart - RRR, SR, fluid/ CT rub Abd/ Extr - OK Incisions - CDI dsgs. Coagulation Studies Laboratory Tests Test 07/13/24 02:15 07/13/24 09:25 07/13/24 14:25 07/13/24 15:35 APTT (Heparin Protocol) 43 SECONDS (45-60) L Patient Sex (Coag) M Patient Height (Coag) 178cm Patient Weight (Coag) 90.0k KG Patient Blood Volume 6372 ML Pump Volume 1500 ML Total Blood Volume 7872 ML Projected Heparin Concentration 2.9 MG/KG Heparin [place] 85 Calculated Heparin Bolus 89228 UNITS Activated Coagulation Time Baseline 141 SEC (101-148) Activated Coag Time 1.70 U/mL 270 SEC (193-297) Activated Coag Time 2.84 U/mL 353 SEC (260-420) Heparin Level (COAG) 0 MG/KG Calculated Heparin Req (Hep Assay) 45784 UNITS Calculated Protamine Req (Hep Assay 0 MG Activated Clotting Time 127 SEC (101-148) Fibrinogen 287 MG/DL (177-424) Coagulation Clinical Comments Test 07/14/24 02:00 Prothrombin Time 11.0 SECONDS (9.0-12.0) INR International Normalized Ratio 1.1 INR Activated Partial Thromboplast Time 28 SECONDS (22-32) Coagulation Comments Cardiac Rhythm: Sinus Rhythm Problem\Assessment\Plan Additional Plan POD # 1 Excellent CI at 3.9 Low SVR. On some Levophed. DC swan Advance diet Move to chair with care. Fem art line in place. Sepsis Screening Reassessment Date: July 14, 2024 Supervising Co-signing Provider: BHUPENDRA Castillo July 14, 2024 07:45
[2024-07-14] MEDS: aspirin 81mg tab.chew PO SCH (08:26)
[2024-07-14 09:40] LABS: ABG PCO2 54.8 mmHg (35.0-48.0); ABG PH 7.259 (7.350-7.450)
[2024-07-14 09:41] LABS: ABG BASE EXCESS -3.5 mmol/L (-2.0-3.0); FCOHb 0.3 % (0.5-1.5); FHHb 2.7 % (0.0-5.0); FMetHb 0.3 % (0.0-1.5); FO2Hb 96.7 % (94.0-98.0); TOTAL HEMOGLOBIN 11.1 G/dl (13.5-17.5)
[2024-07-14 09:42] LABS: ABG OXYGEN SATURATION 97.3 % (94.0-98.0); CL (ABG) 108 mmol/L (98-107); GLUCOSE (ABG) 123 mg/dl (65-95); IONIZED CA (ABG) 1.37 mmol/L (1.15-1.33); K (ABG) 4.8 mmol/L (3.40-4.50)
[2024-07-14 10:38] LABS: ABG PO2 353.9 mmHg (83.0-108.0)
[2024-07-14 10:38] LABS: ABG PO2 378.1 mmHg (83.0-108.0)
[2024-07-14 10:39] LABS: ABG PO2 367.3 mmHg (83.0-108.0)
[2024-07-14 10:39] LABS: ABG PO2 367.4 mmHg (83.0-108.0)
[2024-07-14] MEDS ORDERED: mineral oil/petrolatum ophthal oint EACHEYE SCH (14:00)
--- NOTE | 2024-07-14 14:12 | PROCEDURE NOTE - Respiratory ---
Procedure Note-Respiratory Providers to CC Copies To 1: LUKE MEJIA MD Procedure Name: This is a spirometry study performed July 12, 2024. The spirometry study was performed both before and after inhaled bronchodilator. Spirometry measurements: There is substantial reduction in both the forced vital capacity and the FEV1. The FEV1 ratio is also reduced. All of the measured flow rates are substantially reduced. After inhaled bronchodilator was given, the FEV1 and some of the flow rates show improvement. Conclusion: This study is abnormal. There is evidence for moderately severe obstructive ventilatory defect. The patient improved slightly with inhaled bronchodilator. 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 It is strongly recommended that the patient completely abstain from cigarette smoking. The reduction in the forced vital capacity suggests there is also an element of restrictive ventilatory defect. We have no previous studies for comparison. Bronchodilator therapy will very likely help this patient. IVY MTZ MD July 14, 2024 14:12
[2024-07-14] MEDS ORDERED: nicotine 21mg patch - 24 hr TD SCH (16:10)
[2024-07-14] MEDS: nicotine 21mg patch - 24 hr TD SCH (17:17)
[2024-07-14] MEDS: morphine 2 MG/ML inj. syringe IV PRN (17:59)
[2024-07-14] MEDS: clopidogrel 75mg tablet PO SCH (20:06)
[2024-07-15] VITALS (25 sets, daily range): BP systolic 91–129; BP diastolic 57–89; PULSE 80–107; RESP 12–23; O2SAT 86–98
[2024-07-15 03:24] LABS: BASOPHILS % (AUTO) 0.3 % (0-1); LYMPHOCYTES # (AUTO) 0.6 X10'3 (1.1-4.8); LYMPHOCYTES % (AUTO) 4.1 % (21-51); MONOCYTES # (AUTO) 0.7 X10'3 (0-0.9)
[2024-07-15 03:26] LABS: EOSINOPHILS % (AUTO) 0 % (0-6); HEMATOCRIT 26.1 % (42.0-52.0); MEAN CORPUSCULAR HEMOGLOBIN 30.1 PG (27.0-31.0); MEAN CORPUSCULAR HGB CONC 34.5 g/dL (33.0-36.5); MEAN CORPUSCULAR VOLUME 87.3 FL (78-98); MEAN PLATELET VOLUME 9.5 FL (7.4-10.4); MONOCYTES % (AUTO) 5.3 % (2-12); NEUTROPHILS # (AUTO) 12.6 X10'3 (1.8-7.7); NEUTROPHILS % (AUTO) 90.3 % (42-75); PLATELET COUNT 116 X10'3 (140-440); RED BLOOD COUNT 2.99 X10'6 (4.70-6.10); RED CELL DISTRIBUTION WIDTH 12.6 % (11.5-14.5)
[2024-07-15 03:39] LABS: ALBUMIN 3.2 G/DL (3.4-5.0); ANION GAP 3 (8-16); BLOOD UREA NITROGEN 18 MG/DL (7-18); BUN/CREATININE RATIO 21.2 (10.0-20.0); CALCIUM 8.5 MG/DL (8.5-10.1); CHLORIDE 105 MMOL/L (99-107); CREATININE 0.85 MG/DL (0.60-1.10); GLUCOSE 133 MG/DL (70-104); MAGNESIUM 2.3 MG/DL (1.5-2.4); PHOSPHORUS 3.5 MG/DL (2.3-4.5); POTASSIUM 4.7 MMOL/L (3.5-5.1); SODIUM 137 MMOL/L (135-145); eCRCL 105 ML/MIN; eGFR > 90 ML/MIN
--- NOTE | 2024-07-15 06:49 | RADIOLOGY REPORT ---
CHEST RADIOGRAPH Indication: POST OP Technique: Single frontal view of the chest was obtained Comparison: DI CHEST,SINGLE VIEW on DOS: 07/14/24 FINDINGS: Lines and Tubes: Right central venous catheter with its tip terminating in the superior vena cava. Ar e catheters overlying the left upper quadrant. Mediastinal drain noted. Lungs: Mild pulmonary vascular congestion. No focal consolidation. Pleura: Left pleural effusion. No pneumothorax. Cardiomediastinal contours: Unremarkable Bones: No acute osseous abnormality. IMPRESSION: 1. Left pleural effusion. Mild pulmonary vascular congestion.
[2024-07-15] MEDS: magnesium hydroxide 30ml (MOM) UD suspension PO PRN (07:37)
[2024-07-15] MEDS: magnesium sulf-water 2g/50mL 50 ML IV PRN (07:38)
[2024-07-15] MEDS: pantoprazole 40mg Tablet.DR PO SCH (07:39)
--- NOTE | 2024-07-15 07:54 | PROGRESS NOTE ---
Progress Note CV Providers to CC ~ Antibiotics Ordered?: No Subjective Subjective S/P CABG x 4 POD # 2. Painful and looking forward to CT removal. Was able to get up to the chair but unable to ambulate d/t fem art line in place. Has been off Levophed since yesterday AM. Objective Vitals Vital Signs Date Time Temp Pulse Resp B/P (MAP) Pulse Ox O2 Delivery O2 Flow Rate FiO2 07/15/24 07:39 18 07/15/24 06:00 98.4 80 112/78 (89) 97 Nasal Cannula 3.0 07/14/24 19:09 28 Lab Results: 07/15/24 0312 07/15/24 0312 Objective Lungs - decreased at bases, poor insp. effort d/t discomfort. Heart - RRR, SR Abd/Extr - OK Incisions - CDI Coagulation Studies Laboratory Tests Test 07/13/24 02:15 07/13/24 09:25 07/13/24 14:25 07/13/24 15:35 APTT (Heparin Protocol) 43 SECONDS (45-60) L Patient Sex (Coag) M Patient Height (Coag) 178cm Patient Weight (Coag) 90.0k KG Patient Blood Volume 6372 ML Pump Volume 1500 ML Total Blood Volume 7872 ML Projected Heparin Concentration 2.9 MG/KG Heparin [place] 85 Calculated Heparin Bolus 65323 UNITS Activated Coagulation Time Baseline 141 SEC (101-148) Activated Coag Time 1.70 U/mL 270 SEC (193-297) Activated Coag Time 2.84 U/mL 353 SEC (260-420) Heparin Level (COAG) 0 MG/KG Calculated Heparin Req (Hep Assay) 35996 UNITS Calculated Protamine Req (Hep Assay 0 MG Activated Clotting Time 127 SEC (101-148) Fibrinogen 287 MG/DL (177-424) Coagulation Clinical Comments Test 07/14/24 02:00 Prothrombin Time 11.0 SECONDS (9.0-12.0) INR International Normalized Ratio 1.1 INR Activated Partial Thromboplast Time 28 SECONDS (22-32) Coagulation Comments Cardiac Rhythm: Sinus Rhythm Problem\Assessment\Plan Additional Plan POD # [address] output 230 past 12 hours. Keep drains this AM. He is now on DAPT both ASA and Plavix. DC fem art. line. Mobilize, ambulate later today. Nicotine patch started yesterday. Sepsis Screening Reassessment Date: July 15, 2024 Supervising MD Co-signing Provider: BHUPENDRA Castillo July 15, 2024 07:54
[2024-07-15] MEDS: acetaminophen 1,000mg/100ml IV 100 ML IV SCH (11:33)
[2024-07-15] MEDS: traMADol 50MG tablet PO PRN (16:41)
[2024-07-15] MEDS: ALPRAZolam 0.25mg tablet PO PRN (17:41)
[2024-07-16] VITALS (21 sets, daily range): BP systolic 90–120; BP diastolic 55–83; PULSE 88–99; RESP 18–22; TEMP 97.1–98; O2SAT 83–100
[2024-07-16] MEDS: morphine 2 MG/ML inj. syringe IV ONE (00:50)
[2024-07-16 03:41] LABS: BASOPHILS % (AUTO) 0.3 % (0-1); EOSINOPHILS % (AUTO) 0.3 % (0-6); HEMATOCRIT 27.9 % (42.0-52.0); HEMOGLOBIN 9.6 g/dl (14.0-17.9); LYMPHOCYTES # (AUTO) 1.4 X10'3 (1.1-4.8); LYMPHOCYTES % (AUTO) 12.8 % (21-51); MEAN CORPUSCULAR HEMOGLOBIN 30.1 PG (27.0-31.0); MEAN CORPUSCULAR HGB CONC 34.4 g/dL (33.0-36.5); MEAN CORPUSCULAR VOLUME 87.4 FL (78-98); MEAN PLATELET VOLUME 9.1 FL (7.4-10.4); MONOCYTES # (AUTO) 0.5 X10'3 (0-0.9); MONOCYTES % (AUTO) 4.7 % (2-12); NEUTROPHILS # (AUTO) 8.7 X10'3 (1.8-7.7); NEUTROPHILS % (AUTO) 81.9 % (42-75); PLATELET COUNT 133 X10'3 (140-440); RED BLOOD COUNT 3.19 X10'6 (4.70-6.10); WHITE BLOOD COUNT 10.7 X10'3 (4.5-11.0)
[2024-07-16 03:58] LABS: ANION GAP 7 (8-16); BLOOD UREA NITROGEN 24 MG/DL (7-18); BUN/CREATININE RATIO 25.8 (10.0-20.0); CHLORIDE 101 MMOL/L (99-107); CREATININE 0.93 MG/DL (0.60-1.10); GLUCOSE 105 MG/DL (70-104); MAGNESIUM 2.1 MG/DL (1.5-2.4); PHOSPHORUS 3.2 MG/DL (2.3-4.5); POTASSIUM 4.4 MMOL/L (3.5-5.1); SODIUM 137 MMOL/L (135-145); TOTAL CARBON DIOXIDE 29.4 MMOL/L (24-32); eCRCL 96 ML/MIN; eGFR 85 ML/MIN
--- NOTE | 2024-07-16 05:58 | RADIOLOGY REPORT ---
CHEST RADIOGRAPH Indication: POST OP Technique: Single frontal view of the chest was obtained Comparison: DI CHEST,SINGLE VIEW on DOS: 07/15/24 FINDINGS: Lines and Tubes: Right central venous catheter has been removed. Mediastinal and pericardial drain ar e unchanged. Lungs: Pulmonary vascular congestion. No focal consolidation. Pleura: Small left pleural effusion. No pneumothorax. Cardiomediastinal contours: Unremarkable Bones: No acute osseous abnormality. Status post median sternotomy. IMPRESSION: 1. Mild pulmonary vascular congestion. Small left pleural effusion.
--- NOTE | 2024-07-16 08:46 | PROGRESS NOTE ---
Progress Note CV Providers to CC ~ Antibiotics Ordered?: No Subjective Subjective S/P CABG X 4 POD # 3. He did not rest well last night d/t noise. Pain is reasonably well managed. He needed some Xanax for anxiety which helped quite a bit. Objective Vitals Vital Signs Date Time Temp Pulse Resp B/P (MAP) Pulse Ox O2 Delivery O2 Flow Rate FiO2 07/16/24 06:00 97 19 113/80 (91) 100 Nasal Cannula 2.0 07/15/24 21:09 28 07/15/24 20:00 98.2 Lab Results: 07/16/24 0328 07/16/24 0328 Objective Lungs - fairly clear Heart - RRR. SR Abd/extr - OK Incisions - CDI dsgs Coagulation Studies Laboratory Tests Test 07/13/24 02:15 07/13/24 09:25 07/13/24 14:25 07/13/24 15:35 APTT (Heparin Protocol) 43 SECONDS (45-60) L Patient Sex (Coag) M Patient Height (Coag) 178cm Patient Weight (Coag) 90.0k KG Patient Blood Volume 6372 ML Pump Volume 1500 ML Total Blood Volume 7872 ML Projected Heparin Concentration 2.9 MG/KG Heparin [place] 85 Calculated Heparin Bolus 79912 UNITS Activated Coagulation Time Baseline 141 SEC (101-148) Activated Coag Time 1.70 U/mL 270 SEC (193-297) Activated Coag Time 2.84 U/mL 353 SEC (260-420) Heparin Level (COAG) 0 MG/KG Calculated Heparin Req (Hep Assay) 03277 UNITS Calculated Protamine Req (Hep Assay 0 MG Activated Clotting Time 127 SEC (101-148) Fibrinogen 287 MG/DL (177-424) Coagulation Clinical Comments Test 07/14/24 02:00 Prothrombin Time 11.0 SECONDS (9.0-12.0) INR International Normalized Ratio 1.1 INR Activated Partial Thromboplast Time 28 SECONDS (22-32) Coagulation Comments Cardiac Rhythm: Sinus Rhythm Problem\Assessment\Plan Additional Plan POD # [address] output 240 last [address]'s for now To PCU. Sepsis Screening Reassessment Date: July 16, 2024 Supervising Co-signing Provider: BHUPENDRA Castillo July 16, 2024 08:46
[2024-07-16] MEDS ORDERED: potassium CL 10mEq/100ml bag 100 ML IV PRN (08:50)
[2024-07-16] MEDS ORDERED: magnesium sulf-water 2g/50mL 50 ML IV PRN (08:50)
[2024-07-16] MEDS ORDERED: potassium Cl 40MEQ/1/2NS 520ml 520 ML IV PRN (08:50)
[2024-07-16] MEDS ORDERED: potassium Cl 20 mEq SR tablet PO PRN ×2 (08:50)
[2024-07-16] MEDS ORDERED: potassium Cl 20mEq/100mL bag 100 ML IV PRN (08:50)
[2024-07-16] MEDS ORDERED: magnesium sulf-water 4G/100mL 100 ML IV PRN (08:50)
[2024-07-16] MEDS ORDERED: potassium Cl 40MEQ/270ML bag 250 ML IV PRN (08:50)
[2024-07-17] VITALS (8 sets, daily range): BP systolic 101–120; BP diastolic 64–71; PULSE 96–108; RESP 12–26; TEMP 97–98; O2SAT 93–99
[2024-07-17] MEDS: magnesium Cl slow-release 64mg tablet PO SCH (01:26)
[2024-07-17] MEDS: HYDROcodone/acetaminophen 5mg/325mg tablet PO ONE (04:52)
[2024-07-17 07:36] LABS: BASOPHILS % (AUTO) 0.4 % (0-1); EOSINOPHILS # (AUTO) 0.2 X10'3 (0-0.9); EOSINOPHILS % (AUTO) 1.8 % (0-6); HEMATOCRIT 34.6 % (42.0-52.0); HEMOGLOBIN 11.9 g/dl (14.0-17.9); LYMPHOCYTES # (AUTO) 1.5 X10'3 (1.1-4.8); LYMPHOCYTES % (AUTO) 12.6 % (21-51); MEAN CORPUSCULAR HEMOGLOBIN 29.8 PG (27.0-31.0); MEAN CORPUSCULAR HGB CONC 34.4 g/dL (33.0-36.5); MEAN CORPUSCULAR VOLUME 86.6 FL (78-98); MEAN PLATELET VOLUME 9.1 FL (7.4-10.4); MONOCYTES # (AUTO) 0.7 X10'3 (0-0.9); MONOCYTES % (AUTO) 5.4 % (2-12); NEUTROPHILS # (AUTO) 9.8 X10'3 (1.8-7.7); NEUTROPHILS % (AUTO) 79.8 % (42-75); PLATELET COUNT 229 X10'3 (140-440); RED CELL DISTRIBUTION WIDTH 12.6 % (11.5-14.5); WHITE BLOOD COUNT 12.3 X10'3 (4.5-11.0)
[2024-07-17 07:56] LABS: ALBUMIN 3.2 G/DL (3.4-5.0); ANION GAP 7 (8-16); BLOOD UREA NITROGEN 18 MG/DL (7-18); BUN/CREATININE RATIO 19.8 (10.0-20.0); CALCIUM 8.8 MG/DL (8.5-10.1); CHLORIDE 101 MMOL/L (99-107); CREATININE 0.91 MG/DL (0.60-1.10); GLUCOSE 101 MG/DL (70-104); MAGNESIUM 2.1 MG/DL (1.5-2.4); POTASSIUM 4.4 MMOL/L (3.5-5.1); SODIUM 137 MMOL/L (135-145); TOTAL CARBON DIOXIDE 28.7 MMOL/L (24-32); eCRCL 98 ML/MIN; eGFR 87 ML/MIN
--- NOTE | 2024-07-17 12:14 | PROGRESS NOTE ---
Progress Note CV Providers to CC ~ Progress Note: POD 4, CABGx4 Central Line/PICC still needed: No Antibiotics Ordered?: No MRSA Education MRSA Education Provided: N/A Subjective Subjective Ambulating, tolerating po, pain well controlled. Objective Vitals Vital Signs Date Time Temp Pulse Resp B/P (MAP) Pulse Ox O2 Delivery O2 Flow Rate FiO2 07/17/24 08:00 18 97 Nasal Cannula 2.0 07/17/24 08:00 28 07/17/24 06:30 108 07/17/24 06:00 97.4 101/67 (78) Lab Results: 07/17/24 0640 07/17/24 0640 Objective Neuro: no deficits, Chest: sternum stable, Heart: RRR Ext: warm, trace edema Coagulation Studies Laboratory Tests Test 07/13/24 02:15 07/13/24 09:25 07/13/24 14:25 07/13/24 15:35 APTT (Heparin Protocol) 43 SECONDS (45-60) L Patient Sex (Coag) M Patient Height (Coag) 178cm Patient Weight (Coag) 90.0k KG Patient Blood Volume 6372 ML Pump Volume 1500 ML Total Blood Volume 7872 ML Projected Heparin Concentration 2.9 MG/KG Heparin [place] 85 Calculated Heparin Bolus 92677 UNITS Activated Coagulation Time Baseline 141 SEC (101-148) Activated Coag Time 1.70 U/mL 270 SEC (193-297) Activated Coag Time 2.84 U/mL 353 SEC (260-420) Heparin Level (COAG) 0 MG/KG Calculated Heparin Req (Hep Assay) 01390 UNITS Calculated Protamine Req (Hep Assay 0 MG Activated Clotting Time 127 SEC (101-148) Fibrinogen 287 MG/DL (177-424) Coagulation Clinical Comments Test 07/14/24 02:00 Prothrombin Time 11.0 SECONDS (9.0-12.0) INR International Normalized Ratio 1.1 INR Activated Partial Thromboplast Time 28 SECONDS (22-32) Coagulation Comments Cardiac Rhythm: Sinus Rhythm Problem\Assessment\Plan Additional Plan POD4, cab x4, stable Likely DC in am Cut pacing wires Follow up in clinic, Thursday 07/27 LUKE MEJIA MD July 17, 2024 12:14
--- NOTE | 2024-07-17 12:46 | RADIOLOGY REPORT ---
CHEST RADIOGRAPH Indication: post op cabg Technique: Single frontal view of the chest was obtained COMPARISON: DI CHEST,SINGLE VIEW on DOS: 07/16/24, DI CHEST,SINGLE VIEW on DOS: 07/15/24, DI CHEST,SING LE VIEW on DOS: 07/14/24, DI CHEST,SINGLE VIEW on DOS: 07/13/24, DI CHEST,SINGLE VIEW on DOS: 07/11/24 FINDINGS: Lines and Tubes: Median sternotomy Lungs: Clear Pleura: No effusion. No pneumothorax. Cardiomediastinal contours: Unremarkable Bones: Unremarkable IMPRESSION: No acute disease.
[2024-07-17] MEDS: acetaminophen 325mg tablet PO PRN (21:08)
[2024-07-18 02:00] VITALS: PULSE 110; TEMP 97.1; O2SAT 94
[2024-07-18 06:00] VITALS: BP 117/67; PULSE 105; RESP 18; TEMP 97.6; O2SAT 93
[2024-07-18 08:00] VITALS: RESP 17; O2SAT 93; O2SAT 94
[2024-07-18 08:18] LABS: BASOPHILS % (AUTO) 0.4 % (0-1); EOSINOPHILS # (AUTO) 0.3 X10'3 (0-0.9); EOSINOPHILS % (AUTO) 2.7 % (0-6); HEMATOCRIT 33.9 % (42.0-52.0); HEMOGLOBIN 11.6 g/dl (14.0-17.9); LYMPHOCYTES # (AUTO) 1.5 X10'3 (1.1-4.8); LYMPHOCYTES % (AUTO) 13.3 % (21-51); MEAN CORPUSCULAR HEMOGLOBIN 29.4 PG (27.0-31.0); MEAN CORPUSCULAR HGB CONC 34.1 g/dL (33.0-36.5); MEAN CORPUSCULAR VOLUME 86.3 FL (78-98); MEAN PLATELET VOLUME 8.6 FL (7.4-10.4); MONOCYTES # (AUTO) 0.7 X10'3 (0-0.9); MONOCYTES % (AUTO) 6.3 % (2-12); NEUTROPHILS % (AUTO) 77.3 % (42-75); PLATELET COUNT 265 X10'3 (140-440); RED BLOOD COUNT 3.93 X10'6 (4.70-6.10); RED CELL DISTRIBUTION WIDTH 12.9 % (11.5-14.5); WHITE BLOOD COUNT 11.6 X10'3 (4.5-11.0)
[2024-07-18 08:28] LABS: ALBUMIN 2.9 G/DL (3.4-5.0); ANION GAP 8 (8-16); BLOOD UREA NITROGEN 17 MG/DL (7-18); BUN/CREATININE RATIO 19.5 (10.0-20.0); CALCIUM 8.6 MG/DL (8.5-10.1); CHLORIDE 101 MMOL/L (99-107); CREATININE 0.87 MG/DL (0.60-1.10); GLUCOSE 111 MG/DL (70-104); MAGNESIUM 2.1 MG/DL (1.5-2.4); POTASSIUM 4.6 MMOL/L (3.5-5.1); SODIUM 136 MMOL/L (135-145); TOTAL CARBON DIOXIDE 27.2 MMOL/L (24-32); eCRCL 103 ML/MIN; eGFR > 90 ML/MIN
--- NOTE | 2024-07-18 10:01 | PROGRESS NOTE ---
Progress Note CV Providers to CC ~ Antibiotics Ordered?: No Subjective Subjective S/P CABG x 4 POD # 5. He is alert and in NAD and says he feels ready for home. Ambulating well and has had a BM. Objective Vitals Vital Signs Date Time Temp Pulse Resp B/P (MAP) Pulse Ox O2 Delivery O2 Flow Rate FiO2 07/18/24 08:00 17 93 Room Air 07/18/24 08:00 0 21 07/18/24 06:00 105 07/18/24 06:00 97.6 117/67 (84) Lab Results: 07/18/24 0733 07/18/24 0733 Objective Lungs - clear Heart - RRR, SR Abd/extr - OK Incisions - CDI Coagulation Studies Laboratory Tests Test 07/13/24 02:15 07/13/24 09:25 07/13/24 14:25 07/13/24 15:35 APTT (Heparin Protocol) 43 SECONDS (45-60) L Patient Sex (Coag) M Patient Height (Coag) 178cm Patient Weight (Coag) 90.0k KG Patient Blood Volume 6372 ML Pump Volume 1500 ML Total Blood Volume 7872 ML Projected Heparin Concentration 2.9 MG/KG Heparin [place] 85 Calculated Heparin Bolus 46132 UNITS Activated Coagulation Time Baseline 141 SEC (101-148) Activated Coag Time 1.70 U/mL 270 SEC (193-297) Activated Coag Time 2.84 U/mL 353 SEC (260-420) Heparin Level (COAG) 0 MG/KG Calculated Heparin Req (Hep Assay) 05303 UNITS Calculated Protamine Req (Hep Assay 0 MG Activated Clotting Time 127 SEC (101-148) Fibrinogen 287 MG/DL (177-424) Coagulation Clinical Comments Test 07/14/24 02:00 Prothrombin Time 11.0 SECONDS (9.0-12.0) INR International Normalized Ratio 1.1 INR Activated Partial Thromboplast Time 28 SECONDS (22-32) Coagulation Comments Cardiac Rhythm: Sinus Rhythm, Sinus Tachycardia Problem\Assessment\Plan Additional Plan POD # 5 CV stable DC PW. DC home. Sepsis Screening Reassessment Date: Jul 18, 2024 Supervising Co-signing Provider: BHUPENDRA Curry Jul 18, 2024 10:01
[2024-07-18] MEDS ORDERED: TRAM50TA2 PO (10:03)
[2024-07-18] MEDS ORDERED: ASPI81TA53 PO (10:03)
[2024-07-18] MEDS ORDERED: CLOP75TA34 PO (10:03)
[2024-07-18] MEDS ORDERED: NICO-687 TD (10:03)
[2024-07-18] MEDS ORDERED: ATOR10TA PO (10:03)
[2024-07-18 11:00] VITALS: BP 106/62; PULSE 109; RESP 14; TEMP 97.4; O2SAT 97
[2024-07-18 15:00] VITALS: BP 125/62; PULSE 101; RESP 18; TEMP 98; O2SAT 96
--- NOTE | 2024-07-18 20:05 | DISCHARGE SUMMARY ---
DATE OF DISCHARGE: 07/18/2024 DICTATING PHYSICIAN: Juan Arevalo ADMITTING PHYSICIAN: Hospitalist Service. [facility] PHARMACY TECHNICIAN: Marlo Dotson MD with Dr. Guillaume's service Seen in consultation by Dr. Carlos Eduardo Peraza, cardiac surgeon. PREOPERATIVE DIAGNOSES: Non-ST segment elevation PA with a past medical history of hyperlipidemia, tobacco abuse, noncompliance, possible anxiety, depression, and positive methamphetamines on drug test at admission. DISCHARGE DIAGNOSES: Non ST segment elevation PA with a past medical history of hyperlipidemia, tobacco abuse, noncompliance, possible anxiety, depression, and positive methamphetamines on drug test at admission, status post urgent coronary artery bypass grafting x 4. COMPLICATIONS: Postoperatively none. CONDITION ON DISCHARGE: Stable. PROGNOSIS: Good. SUMMARY: This is a pleasant 54-year-old gentleman with a past medical history of tobacco abuse, anxiety, hyperlipidemia, and noncompliance who presented to the Emergency Department as a transfer from [facility] for an NSTEMI. The patient began having chest pain radiating to the back. Initially, he felt it could be GI in nature. When he presented to the hospital in [facility], he was found to have positive troponins and he was transferred to our facility. He was maintained on a heparin drip. He was taken to the cardiac catheterization laboratory where he was found to have severe multivessel coronary artery disease. He was taken to the operating room on 07/13/2024, name of the operation is coronary artery bypass graft surgery x 4 with a left internal mammary artery to the LAD, saphenous graft to a PDA, saphenous vein graft to an OM1 and OM2 sequentially along with right endoscopic harvesting and transesophageal echocardiography. Following the operation, the patient was transferred to the CICU in stable condition where the following morning he was awake, alert, and extubated. He was a little bit reserved at first in terms of communication, but this was the case as well preop. He denies nausea and had a good appetite. His initial H and H was 9.4 and 27.1. Creatinine was 0.96. Nerinx and arterial line were discontinued. Levophed was weaned off for a low SVR. He had an excellent cardiac index of 3.9. He had some significant pain related to the chest drains. These were removed on postop day #4 and he was transitioned to the Progressive Care Unit for further rehabilitation. Plavix and aspirin were initiated and he has continued to enjoy an uncomplicated postoperative course otherwise. Today, he is ambulating well. He has had a bowel movement and he feels ready for discharge home. DISCHARGE PROGRAM: Followup appointment with the cardiac surgeon's office on 07/27, follow up appointment with Dr. Guillaume's office in 4 weeks and with his primary physician in 6 weeks. ACTIVITY: As per cardiac rehab instructions. He will be instructed to take short showers, to observe sterile precautions, no heavy lifting, no driving. DIET: Regular diet, transitioning to a heart-healthy diet as tolerated. MEDICATIONS ON DISCHARGE: Will include aspirin 81 mg p.o. daily, Lipitor 10 mg p.o. daily, Plavix 75 mg p.o. daily, nicotine patch 21 mg every 24 hours daily for 14 days, tramadol 50 mg p.o. every 6 hours p.r.n. pain. Beta blockers were held due to preoperative and postoperative episodes of bradycardia. Juan Arevalo TID: [id number] RECEIPT: [id number] ROSIO/TIMOTEO cc: Carlos Eduardo Peraza MD, Ty Guillaume MD
== END 2024-07-18 15:15 | disposition home or self-care (01) | DRG 166 ==
LOC: ER 11:17 → ED HOLD 18:15 → PCU 3S 21:46 → CICU 2S 07-13 09:51 → PCU 3S 07-16 15:10
PROVIDERS: ADMIT Family Medicine; ATTEND Family Medicine
PROC: 4A023N7 Measurement of Cardiac Sampling and Pressure, Left Heart, Percutaneous Approach (ICD-10-PCS; principal; 2024-07-12)
PROC: B2111ZZ Fluoroscopy of Multiple Coronary Arteries using Low Osmolar Contrast (ICD-10-PCS; 2024-07-12)
PROC: 02100Z9 Bypass Coronary Artery, One Artery from Left Internal Mammary, Open Approach (ICD-10-PCS; 2024-07-13)
PROC: 021209W Bypass Coronary Artery, Three Arteries from Aorta with Autologous Venous Tissue, Open Approach (ICD-10-PCS; 2024-07-13)
PROC: 06BQ4ZZ Excision of Left Saphenous Vein, Percutaneous Endoscopic Approach (ICD-10-PCS; 2024-07-13)
PROC: 5A1221Z Performance of Cardiac Output, Continuous (ICD-10-PCS; 2024-07-13)
PROC: B24BZZ4 Ultrasonography of Heart with Aorta, Transesophageal (ICD-10-PCS; 2024-07-13)
PROC: 04HY32Z Insertion of Monitoring Device into Lower Artery, Percutaneous Approach (ICD-10-PCS; 2024-07-13)
DX: I25.10 Atherosclerotic heart disease of native coronary artery without angina pectoris (principal); I21.4 Non-ST elevation (NSTEMI) myocardial infarction; E78.00 Pure hypercholesterolemia, unspecified; F17.210 Nicotine dependence, cigarettes, uncomplicated; F41.9 Anxiety disorder, unspecified; I10 Essential (primary) hypertension; F32.A Depression, unspecified; Z79.899 Other long term (current) drug therapy; Z82.3 Family history of stroke; Z91.199 Patient's noncompliance with other medical treatment and regimen due to unspecified reason; Z80.3 Family history of malignant neoplasm of breast
CPT/HCPCS: 36415; 36600; 71045; 71046; 80048; 80053; 80061; 80305; 81003; 82330; 82435; 82803; 82947; 82948; 83036; 83735; 83880; 84100; 84132; 84295; 84484; 85007; 85018; 85025; 85347; 85384; 85610; 85730; 86885; 86900; 86901; 86920; 87081; 93005; 93306; 93312; 93325; 93458; 93880; 93970; 94002; 94060; 94640; 94668; 94760; 97116; 97162; 97530; 99152; 99153; 99291; A4333; A4615; A4618; A6213; A6222; A6258; A6402; A6449; A7000; A7015; A7048; C1751; C1894; G0378; J0131; J0282; J0690; J1100; J1250; J1265; J1644; J1815; J2003; J2150; J2250; J2270; J2371; J2405; J2440; J2704; J2765; J2919; J3010; J3370; J3480; J3490; J7030; J7040; J7050; J7120; P9045; P9047; Q9967